=== PATIENT | female | born 1965 | race Native Hawaiian/Other Pacific Islander ===

== ENCOUNTER 2020-01-06 10:40 | Outpatient (REF) | payer OTHER, SELFPAY | END 2020-01-06 10:41 | disposition home or self-care (01) | LOC: HO.LAB 10:40 | PROVIDERS: Visit Provider Internal Medicine | DX: Z20.828 Contact with and (suspected) exposure to other viral communicable diseases (principal) | CPT/HCPCS: 87635 ==

== ENCOUNTER 2020-01-16 14:46 | Outpatient (REF) | payer OTHER, SELFPAY | END 2020-01-16 14:47 | disposition home or self-care (01) | LOC: HO.LAB 14:46 | PROVIDERS: PCP Internal Medicine; Visit Provider Internal Medicine | DX: Z20.828 Contact with and (suspected) exposure to other viral communicable diseases (principal) | CPT/HCPCS: U0003 ==

== ENCOUNTER 2020-08-16 11:42 | Outpatient (REF) | payer OTHER, SELFPAY | END 2020-08-16 11:43 | disposition home or self-care (01) | LOC: HO.LAB 11:42 | PROVIDERS: Visit Provider Internal Medicine | DX: Z20.822 Contact with and (suspected) exposure to COVID-19 (principal) | CPT/HCPCS: C9803; U0003; U0005 ==

== ENCOUNTER 2020-11-07 09:43 | Outpatient (REF) | payer OTHER, SELFPAY ==
--- NOTE | ~2020-11-07 | XR_ITS ---
EXAMINATION: XR KNEE, RIGHT XR FOOT, RIGHT XR FOOT, LEFT CLINICAL INFORMATION: Pain. COMPARISON: Left foot radiographs dated 09/21/2010 TECHNIQUE: AP, tunnel, lateral, and sunrise views of the right knee. AP, oblique, and lateral views of the right and left foot. FINDINGS: RIGHT KNEE: No acute fracture or dislocation. No joint space narrowing or marginal osteophytes. No osseous erosion. No abnormal soft tissue calcification. No significant joint effusion. RIGHT FOOT: No acute fracture or dislocation. No joint space narrowing or marginal osteophytes. No osseous erosion. Dorsal calcaneal enthesophyte. LEFT FOOT: No acute fracture or dislocation. No joint space narrowing or marginal osteophytes. No osseous erosion. Dorsal calcaneal enthesophyte. XR/XR foot LT 2V IMPRESSION: RIGHT KNEE: Unremarkable examination. RIGHT FOOT: No acute osseous abnormality. Dorsal calcaneal spur. LEFT FOOT: No acute osseous abnormality. Dorsal calcaneal spur, increased when compared to the prior radiographs.
--- NOTE | ~2020-11-07 | XR_ITS ---
EXAMINATION: XR KNEE, RIGHT XR FOOT, RIGHT XR FOOT, LEFT CLINICAL INFORMATION: Pain. COMPARISON: Left foot radiographs dated 09/21/2010 TECHNIQUE: AP, tunnel, lateral, and sunrise views of the right knee. AP, oblique, and lateral views of the right and left foot. FINDINGS: RIGHT KNEE: No acute fracture or dislocation. No joint space narrowing or marginal osteophytes. No osseous erosion. No abnormal soft tissue calcification. No significant joint effusion. RIGHT FOOT: No acute fracture or dislocation. No joint space narrowing or marginal osteophytes. No osseous erosion. Dorsal calcaneal enthesophyte. LEFT FOOT: No acute fracture or dislocation. No joint space narrowing or marginal osteophytes. No osseous erosion. Dorsal calcaneal enthesophyte. XR/XR knee RT 4V IMPRESSION: RIGHT KNEE: Unremarkable examination. RIGHT FOOT: No acute osseous abnormality. Dorsal calcaneal spur. LEFT FOOT: No acute osseous abnormality. Dorsal calcaneal spur, increased when compared to the prior radiographs.
--- NOTE | ~2020-11-07 | XR_ITS ---
EXAMINATION: XR KNEE, RIGHT XR FOOT, RIGHT XR FOOT, LEFT CLINICAL INFORMATION: Pain. COMPARISON: Left foot radiographs dated 09/21/2010 TECHNIQUE: AP, tunnel, lateral, and sunrise views of the right knee. AP, oblique, and lateral views of the right and left foot. FINDINGS: RIGHT KNEE: No acute fracture or dislocation. No joint space narrowing or marginal osteophytes. No osseous erosion. No abnormal soft tissue calcification. No significant joint effusion. RIGHT FOOT: No acute fracture or dislocation. No joint space narrowing or marginal osteophytes. No osseous erosion. Dorsal calcaneal enthesophyte. LEFT FOOT: No acute fracture or dislocation. No joint space narrowing or marginal osteophytes. No osseous erosion. Dorsal calcaneal enthesophyte. XR/XR foot RT 2V IMPRESSION: RIGHT KNEE: Unremarkable examination. RIGHT FOOT: No acute osseous abnormality. Dorsal calcaneal spur. LEFT FOOT: No acute osseous abnormality. Dorsal calcaneal spur, increased when compared to the prior radiographs.
[2020-11-07 11:29] LABS: MANUAL DIFF FLAG NO
[2020-11-07 11:37] LABS: Basophils Percent Auto 0.6 % (0-2); Eosinophils Absolute Auto 0.2 X10*3/uL (0.0-0.4); Eosinophils Percent Auto 2.4 % (0-4); Hematocrit 39.6 % (37-47); Hemoglobin 12.6 g/dl (12.0-16.0); Imm Gran Abs Auto 0.03 X10*3/uL (0.00-0.03); Imm Gran Pct Auto 0.5 % (0.0-0.4); Lymphocytes Absolute Auto 2.8 X10*3/uL (1.2-4.9); Lymphocytes Percent Auto 45.6 % (20-40); Mean Corpuscular HGB Conc 31.8 g/dl (31.0-35.0); Mean Corpuscular Hemoglobin 27.6 pg (27.0-33.0); Mean Corpuscular Volume 86.8 fL (80-98); Mean Platelet Volume 9.4 fL (9.4-12.3); Monocytes Absolute Auto 0.3 X10*3/uL (0.1-1.2); Monocytes Percent Auto 4.5 % (2-11); Neutrophils Absolute Auto 2.9 X10*3/uL (2.0-8.3); Neutrophils Percent Auto 46.4 % (45-73); Platelet Count 258 X10*3/uL (160-400); Red Blood Count 4.56 X10*6/uL (4.20-5.50); Red Cell Distribution Width 14.3 % (11.0-16.0); White Blood Count 6.2 X10*3/uL (4.8-10.8)
[2020-11-07 12:24] LABS: Thyroid Stimulating Hormone 1.12 uIU/mL (0.32-4.0)
[2020-11-07 12:27] LABS: Alanine Aminotransferase 22 U/L (0-31); Albumin Level 4.3 g/dL (3.5-5.0); Alkaline Phosphatase 104 U/L (39-117); Anion Gap 11 (12-20); Aspartate Amino Transferase 24 U/L (5-31); Bilirubin Total 0.6 mg/dL (0.0-1.0); Blood Urea Nitrogen 12 mg/dL (9-16); C Reactive Protein 0.13 mg/dL (< or = 0.50); Calcium 9.7 mg/dL (8.4-10.2); Carbon Dioxide 29 mmol/L (22-29); Chloride 107 mmol/L (96-108); Estimated Glomerular Filt Rate > 60; Glucose Random 86 mg/dL (60-115); Potassium 4.5 mmol/L (3.3-5.1); Sodium 142 mmol/L (135-145); Total Protein 7.2 g/dL (6.5-8.0)
[2020-11-07 12:31] LABS: Erythrocyte Sedimentation Rate 8 MM/HR (0-20)
[2020-11-07 12:43] LABS: Rheumatoid Factor < 15.0 IU/mL (<15.0)
[2020-11-08 09:25] LABS: Lyme Abs Screen <0.90 index
[2020-11-09 17:51] LABS: Cyclic Citrullinated Peptide <16 UNITS
== END 2020-11-07 09:44 | disposition home or self-care (01) ==
LOC: HO.XRAY 09:43
PROVIDERS: PCP Internal Medicine; Visit Provider Student in an Organized Health Care Education/Training Program
DX: M79.671 Pain in right foot (principal); M79.672 Pain in left foot; M25.561 Pain in right knee
CPT/HCPCS: 36415; 73564; 73620; 80053; 84443; 85025; 85652; 86140; 86200; 86431; 86617; 86618

== ENCOUNTER → 2020-11-21 09:03 | Outpatient (BNVA) | payer OTHER, SELFPAY | PROVIDERS: PCP Internal Medicine; Visit Provider Student in an Organized Health Care Education/Training Program ==

== ENCOUNTER 2021-01-15 13:28 | Outpatient (RCR) | payer OTHER, SELFPAY ==
--- NOTE | 2021-01-15 15:20 | MHC.PT.EP ---
[facility] Office [place] Office [place] Office [address] Deja Owens [address] [phone] F: [phone] F: [phone] F: [phone] F: [phone] Physical Therapy Plan of Care Date of Evaluation: Date of Surgery: n/a Diagnosis: Pain in R knee Assessment: Patient is a 55 year old female presenting to PT with complaints of pain in her R knee. Pt reports onset of pain began 4 years ago due to insidious onset. She presents today with impairments in pain, hip strength, knee strength, quad muscle length, and +ttp to her anterior knee. 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 Clinical presentation today is most consistent with signs and sx associated with knee pain with possible myofascial component and pt will benefit from skilled PT to address the following problems and impairments noted upon evaluation: pain, hip strength, knee strength, balance, quad muscle length, and +ttp to her anterior knee. These problems limit the patient with the following functional activities: ambulation, stair negotiation, transfers, and work. The prescribed treatment plan of care is medically necessary. Co-morbidities of polyarthralgia were identified and taken into considerations of plan of care. Pt was educated on HEP, role of PT, prognosis, POC. Frequency and Duration: The patient will be seen 2 x week x 4 weeks Short Term Goals: Pt will demonstrate improved knee strength to 5/5 in 2 weeks for improved ability to negotiate stairs. Pt will demonstrate improved quad muscle length to WNL in 2 weeks for improved knee ROM. Pt will demonstrate improved hip strength by 1/3 MMT for improved lumbopelvic stability in 2 weeks. Hotel Custodian Goals: Pt will demonstrate improved LEFI by 9 points in 4 weeks for improved functional mobility. Pt will demonstrate ability to ambulate with min to no pain community distances in 4 weeks. Pt will demonstrate ability to negotiate stairs in 4 weeks with min to no pain in 4 weeks to improve access to her 2nd floor home. Pt will demonstrate ability to transfer with min to no pain in 4 weeks. Treatment Plan: Modalities to reduce pain, spasms and effusion. Manual therapy to restore motion and function. Therapeutic exercise to improve strength and flexibility. Neuromuscular re-education for posture and balance. Therapeutic activities to return to functional activities of daily living. Electronically signed by: Wendy Ibrahim, PT, DPT, ATC Please sign and return to therapist. Thank you for your referral.
--- NOTE | 2021-01-30 10:24 | MHC.PT.DC ---
[facility] [place] Office [place] Office [place] Office [address] No[address] Owens [address] [phone] F: [phone] F: [phone] F: [phone] F: [phone] Physical Therapy Discharge Report Diagnosis: Pain in R knee Date of Surgery: n/a Date of Evaluation: 01/15/21 Date of Discharge: 01/30/21 Treatments to Date: 1 Cancellations to Date: 1 No Shows to Date: 3 Discharge Status: Visit Non-compliance Discharge Summary: Pt has failed to comply with [facility] attendance policy and no showed/cancelled all appointments since the evaluation. Pt status currently unknown. Electronically signed by: Wendy Ibrahim, PT, DPT, ATC Please sign and return to therapist. Thank you for your referral.
== END 2021-01-30 10:25 | disposition home or self-care (01) ==
LOC: HO.PT 13:28
PROVIDERS: PCP Internal Medicine; Visit Provider Student in an Organized Health Care Education/Training Program
DX: M25.561 Pain in right knee (principal)
CPT/HCPCS: 97110; 97161

== ENCOUNTER → 2021-02-20 10:08 | Outpatient (REF) | payer OTHER, SELFPAY ==
--- NOTE | 2021-02-20 10:12 | ECG_ITS ---
Test Reason : CHEST PAIN Blood Pressure : / mmHG Vent. Rate : 064 BPM Atrial Rate : 064 BPM P-R Int : 140 ms QRS Dur : 076 ms QT Int : 400 ms P-R-T Axes : 059 023 054 degrees QTc Int : 412 ms Normal sinus rhythm Normal ECG When compared with ECG of 09-SEP-2015 11:29, No significant change was found Referred By: Piedad Wilson Electronically Signed By:Solomon Melton
== END ==
LOC: HO.CARD 10:08
PROVIDERS: Visit Provider Internal Medicine
DX: R07.89 Other chest pain (principal); K21.9 Gastro-esophageal reflux disease without esophagitis; E78.5 Hyperlipidemia, unspecified; E55.9 Vitamin D deficiency, unspecified; Z23 Encounter for immunization
CPT/HCPCS: 93005

== ENCOUNTER 2021-06-24 11:30 | Outpatient (RCR) | payer OTHER, SELFPAY ==
--- NOTE | 2021-06-17 15:50 | MHC.OT.OEV ---
[address] [phone] F: [phone] Occupational Therapy Evaluation Diagnosis: PAIN IN RIGHT WRIST Date of Onset: 05/14/21 Attending Provider: Myriam Tenorio Prescribed Treatment: EVAL AND TREAT History of Current Condition: REPORTS A ONE MONTH HISTORY OF R HAND PAIN, PARTICULARLY IN MCPs D2-D5. SHE ALSO REPORTS MILD PAIN THROUGH DORSAL AND VOLAR WRIST, WELL THE BASE OF HER THUMB. HAS SEEN A LIBRARY SERVICES ASSISTANT IN THE PAST FOR KNEE AND FOOT PAIN. 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 HOBBIES INCLUDE VOLUNTEERING TO PASS FOOD AND CLOTHES ABOUT 1X/WEEK. Living Situation, Family and/or Social Support: LIVES WITH SPOUSE, GRANDCHILD (6 YEARS OLD) Current Level of Function and Occupation Self Care, Employment, Leisure: HAS STOPPED WORKING FOR ABOUT THREE YEARS, CONTINUES TO VOLUNTEER TWO DAYS A WEEK. 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 STATES MODERATE DIFFICULTIES WITH GETTING DRESSED AND BATHING SELF INCLUDING WASHING BACK. FREQUENTLY DROPS ITEMS OUT OF RIGHT HAND, UNABLE TO LIFT >10 POUNDS. SEVERE DIFFICULTIES WITH CUTTING FOOD AND OPENING TIGHT JAR. Sleep: MILD DIFFICULTIES Driving: NO DIFFICULTIES Pain Assessment Pain Score: 7-9/10 Pain Scale Used: Numeric (0 - 10) Pain Location and Description: R HAND, DORSAL MCPs D2-D5 AND RADIAL THUMB 7/10 AT REST; 9/10 WITH USE Aggravating Factors: GRIPPING, CUTTING Alleviating Factors: NAPROXEN, SOAKING IN HOT WATER Skin and Soft Tissue Assessment Skin and Soft Tissue: Comments: HEALED DORSAL R WRIST SCAR, REPORTS ?GANGLION CYST REMOVAL 5 YEARS AGO Sensory Assessment Temperature: Light Touch: Proprioception: Vibration: Comments: REPORTS NUMBNESS THROUGH D2 UPON WAKING IN THE MORNING; CONTINUE TO ASSESS WITH ONGOING SESSIONS DUE TO TIME CONSTRAINT Edema Assessment Upper Extremity: WNL Lower Extremity: Comments: CIRCUMFERENCE OF D2-D5: RIGHT 18.8 CM, LEFT 18.5 CM CIRCUMFERENCE OF WRIST, DISTAL TO US: RIGHT 15.5 CM, LEFT 15.3 CM Dexterity Assessment Dexterity: Right Impaired Comments: FUNCTIONAL DEXTERITY TEST: RIGHT 44 SECONDS (MODERATELY FUNCTIONAL), LEFT 36 SECONDS Special Tests Comments: AROM(PROM) Strength Wrist Flexion: R 50, L 55 Extension: R 65, L 50 Ulnar Deviation: Radial Deviation: Comments: PAIN WITH R WRIST FLEXION Flexion: Extension: Ulnar Deviation: Radial Deviation: Comments: Thumb Thumb CMC Flexion: Thumb MCP Flexion: Thumb IP Flexion: Radial Abduction: Palmar Abduction: Annabella (Kapandji 0-10): R 8/10, L 10/10 Comments: Digits Index MCP: PIP: DIP: Long MCP: PIP: DIP: Ring MCP: PIP: DIP: Small MCP: PIP: DIP: Comments: Gross Grasp: R 18, L 45 Lateral Pinch: R 5, L 9 Two-Point Pinch: Three-Jaw Stevie: Comments: Patient Education Primary Language: [employer] Transactions Attorney Required: Yes Current Knowledge: Understands information with skills for self-management Teaching Method: Audio/Video Demonstration Handouts Phone Call Verbal Education Needs Identified on Evaluation: ADL's Disease Information Equipment Use Exercise Pain Safety How did patient/family demonstrate learning? Patient demonstrates Patient verbalizes Barriers to Learning: None Readiness for Learning: Accepting Who was educated? Patient Comments: DAVI HAY BALER UTILIZED Plan of Care Assessment: MS TALAMANTES PRESENTS TO OT WITH A ONE MONTH HISTORY OF R HAND PAIN. SHE STATES HER PAIN IS LOCATED IN HER MCPj OF D2-D5, WELL BASE OF HER THUMB. A COMPRESSION GLOVE WAS RECOMMENDED BY HER MD, YET HAS NOT PURCHASED YET. 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 SHE OFTEN DROPS ITEMS AND C/O A WEAK GRASP. A 64% LIMITATION IS REPORTED PER THE QUICK DASH ASSESSMENT. ONGOING SKILLED OT IS WARRANTED TO ADDRESS ROM, STRENGTH, ACTIVITY MODIFICATION/ JOINT PROTECTION STRATEGIES, PAIN MANAGEMENT AND Pt EDUCATION. STG Duration: 2 WEEKS Short Term Goals: IND HEP IND JOINT PROTECTION, ACTIVITY MODIFICATION DURING ADLs/IADLs IND USE OF HEAT, INCLUDING POSSIBLE HOME PARAFFIN UNIT TRIAL USE OF COMPRESSION GLOVES LTG Duration: 4 WEEKS Nursing Home Goals: R GROSS GRASP >35 POUNDS QUICK DASH <50% IND PROGRESSION OF HEP REPORT <5/10 PAIN WITH AROM AND BADLs Frequency and Duration: The patient will be seen 2X/WEEK FOR 4 WEEKS Treatment Plan: Therapeutic Exercise Therapeutic Activity Home Exercise Program Splinting Neuro Re-ed Patient Education Desensitization/Sensory Re-ed Edema Control ADL Training Ultrasound NMES Iontophoresis Paraffin Fluidotherapy MHP Cold Packs Joint Mobilization Soft Tissue Mobilization Kinesiotaping Other (see comments) Electronically Signed By: JOHN MILLARD/Erick Reviewed/agree with student documentation: N/A Therapist: Please sign and return to therapist, Thank you for your referral.
--- NOTE | 2021-07-04 07:45 | MHC.OT.DC ---
[address] [phone] F: [phone] Occupational Therapy Discharge Note Provider: Myriam Tenorio Diagnosis: PAIN IN RIGHT WRIST Date of Evaluation: 06/17/21 Date of Discharge: 07/04/21 Treatments to Date: 3 Cancellations to Date: 0 No Shows to Date: 2 Discharge Status: Visit Non-compliance Discharge Summary: MS TALAMANTES WAS SEEN FOR AN OT EVALUATION AND TWO FOLLOW UP SESSIONS. AN ORTHOSIS WAS FABRICATED TO DECREASE CMC PAIN AND REPORTED SOME RELIEF WHEN WORN. SHE APPEARED TO HAVE GOOD FOLLOW THROUGH WITH JOINT PROTECTION TECHNIQUES. Pt IS BEING D/C FROM OT DUE TO CORE ATTENDANCE POLICY/ NO SHOWS. Electronically Signed By: JOSELYN GUPTA OTR/L Reviewed/agree with student documentation: N/A Therapist: Please Sign and return to therapist, thank you for your referral.
== END 2021-07-04 07:45 | disposition home or self-care (01) ==
LOC: HO.OT 11:30
PROVIDERS: PCP Internal Medicine; Visit Provider Nurse Practitioner Family
DX: M25.531 Pain in right wrist (principal)
CPT/HCPCS: 29130; 97018; 97110; 97165; 97760

== ENCOUNTER 2021-07-01 09:32 | Outpatient (REF) | payer OTHER, SELFPAY ==
[2021-07-01 09:51] LABS: MANUAL DIFF FLAG NO
[2021-07-01 10:10] LABS: Basophils Absolute Auto 0.1 X10*3/uL (0.0-0.2); Basophils Percent Auto 1.1 % (0-2); Eosinophils Absolute Auto 0.2 X10*3/uL (0.0-0.4); Eosinophils Percent Auto 2.5 % (0-4); Hemoglobin 13.3 g/dl (12.0-16.0); Lymphocytes Absolute Auto 2.9 X10*3/uL (1.2-4.9); Lymphocytes Percent Auto 46.2 % (20-40); Mean Corpuscular HGB Conc 31.7 g/dl (31.0-35.0); Mean Corpuscular Hemoglobin 27.4 pg (27.0-33.0); Mean Corpuscular Volume 86.4 fL (80.0-98.0); Mean Platelet Volume 9.1 fL (9.4-12.3); Monocytes Absolute Auto 0.3 X10*3/uL (0.1-1.2); Monocytes Percent Auto 4.6 % (2-11); Neutrophils Absolute Auto 2.9 x10*3/uL (2.0-8.3); Neutrophils Percent Auto 45.6 % (45-73); Platelet Count 274 X10*3/uL (160-400); Red Blood Count 4.86 X10*6/uL (4.20-5.50); Red Cell Distribution Width 14.2 % (11.0-16.0); White Blood Count 6.3 X10*3/uL (4.8-10.8)
[2021-07-01 10:40] LABS: Alanine Aminotransferase 23 U/L (0-31); Albumin Level 4.3 g/dL (3.5-5.0); Alkaline Phosphatase 106 U/L (39-117); Anion Gap 12 (12-20); Aspartate Amino Transferase 23 U/L (5-31); Bilirubin Total 0.8 mg/dL (0.0-1.0); Blood Urea Nitrogen 10 mg/dL (9-16); Carbon Dioxide 26 mmol/L (22-29); Chloride 106 mmol/L (96-108); Cholesterol 200 mg/dL; Estimated Glomerular Filt Rate > 60; Glucose Fasting 100 mg/dL (60-99); HDL Cholesterol 54 mg/dL; LDL Cholesterol Calculated 124 mg/dl; Potassium 5.2 mmol/L (3.3-5.1); Sodium 139 mmol/L (135-145); Total Protein 7.3 g/dL (6.5-8.0); Triglycerides 111 mg/dL
[2021-07-05 13:46] LABS: Vitamin D 25-OH, D2 <4 ng/mL; Vitamin D 25-OH, D3 16 ng/mL; Vitamin D 25-OH, Total 16 ng/mL (30-100)
== END 2021-07-01 09:33 | disposition home or self-care (01) ==
LOC: HO.LAB 09:32
PROVIDERS: PCP Internal Medicine; Visit Provider Internal Medicine
DX: E78.5 Hyperlipidemia, unspecified (principal); E55.9 Vitamin D deficiency, unspecified; K21.9 Gastro-esophageal reflux disease without esophagitis
CPT/HCPCS: 36415; 80053; 80061; 82306; 85025

== ENCOUNTER 2021-07-17 13:46 | Outpatient (REF) | payer OTHER, SELFPAY ==
--- NOTE | ~2021-07-17 | MM_ITS ---
EXAMINATION: BONE DENSITOMETRY CLINICAL INDICATION: Menopause. COMPARISON: None (current study represents initial baseline exam). TECHNIQUE: Using a Voxify DXA System (software version: 13.1) manufactured by [employer], dual-energy x-ray absorptiometry was performed of the lumbar spine and left hip. The images are of good technical quality. Summary results are attached. FINDINGS: AP SPINE L1-L4: BMD 0.974 g/cm2, Z-score -1.1, T-score -1.7, osteopenia. LEFT FEMUR, NECK: BMD 0.803 g/cm2, Z-score -0.8, T-score -1.7, osteopenia. LEFT FEMUR, TOTAL: BMD 0.864 g/cm2, Z-score -0.6, T-score -1.1, osteopenia. IDENTIFIED RISK FACTORS: Early menopause, low calcium intake, secondary osteoporosis. HISTORY OF FRACTURE: None listed. MEDICATIONS: None listed. MM/XR DEXA axial skeleton IMPRESSION: 1. DIAGNOSIS: Osteopenia based on the lowest T-score value of -1.7 in the lumbar spine and femur neck applying World Health Organization criteria. 2. 10-YEAR FRACTURE RISK PREDICTION, FRAX: Major osteoporotic fracture (clinical spine, forearm, hip or shoulder) 3.6%. Hip fracture 0.3%. 3. Treatment Recommendations: NOF guidelines recommend consideration for treatment in postmenopausal women and men age 50 and older presenting with the following: -A hip or vertebral (clinical or morphometric) fracture. -T-score less than or equal to -2.5 at the femoral neck or spine after appropriate evaluation to exclude secondary causes. -Low bone mass at the hip or spine and a 10-year fracture probability by FRAX of greater than or equal to 3% for hip fracture or greater than or equal to 20% for major osteoporotic fracture based on the [place] adapted WHO algorithm. 4. Other Recommendations: All treatment decisions require clinical judgment and consideration of individual patient factors, including patient preferences, comorbidities, previous drug use, risk factors not captured in the FRAX model (e.g. frailty, falls, vitamin D deficiency, increased bone turnover, interval significant decline in bone density) and possible under or overestimation of fracture risk by FRAX. Additional medical evaluation for secondary cause of low bone mineral density may be appropriate. FUTURE SCAN RECOMMENDATION: People with diagnosed cases of osteoporosis or at high risk for fracture should have regular bone mineral density tests. For patients eligible for Medicare, routine testing is allowed once every 2 years. The testing frequency can be increased to one year for patients who have rapidly progressing disease, those who are receiving or discontinuing medical therapy to restore bone mass, or have additional risk factors.
== END 2021-07-17 13:47 | disposition home or self-care (01) ==
LOC: HO.MAMMO 13:46
PROVIDERS: PCP Internal Medicine; Visit Provider Internal Medicine
DX: Z13.820 Encounter for screening for osteoporosis (principal); M85.80 Other specified disorders of bone density and structure, unspecified site; Z78.0 Asymptomatic menopausal state
CPT/HCPCS: 77080

== ENCOUNTER 2021-09-02 09:41 | Outpatient (REF) | payer OTHER, SELFPAY ==
--- NOTE | ~2021-09-02 | MM_ITS ---
EXAMINATION: MM SCREENING DIGITAL BREAST TOMOSYNTHESIS, BILATERAL CLINICAL INFORMATION: Screening. Asymptomatic. The lifetime risk of breast cancer based on the Tyrer-Cuzick Model is 4%. COMPARISON: Mammography: 09/01/2018, 05/18/2017, 12/07/2015 TECHNIQUE: Digital breast tomosynthesis is performed in both the craniocaudal and mediolateral oblique views along with computer-aided detection (CAD). Synthesized 2D images are generated from the tomosynthesis. FINDINGS: There are scattered areas of fibroglandular density (ACR BI-RADS breast composition Category b). There are no significant masses, abnormal calcifications, or other abnormalities. Parenchymal pattern is similar to prior studies. No developing density. No architectural abnormality. Nodule posterior upper outer left breast likely intramammary node stable. MM/MM tomosynthesis screening BI IMPRESSION: No mammographic evidence of malignancy. ASSESSMENT: BI-RADS 2: Benign RECOMMENDATION: Routine annual mammography screening. This patient's information was entered into a reminder system with a target due date for their next mammogram.
== END 2021-09-02 09:42 | disposition home or self-care (01) ==
LOC: HO.MAMMO 09:41
PROVIDERS: PCP Internal Medicine; Visit Provider Internal Medicine
DX: Z12.31 Encounter for screening mammogram for malignant neoplasm of breast (principal)
CPT/HCPCS: 77063; 77067

== ENCOUNTER 2022-06-24 09:53 | Outpatient (REF) | payer OTHER, SELFPAY ==
--- NOTE | ~2022-06-24 | FL_ITS ---
EXAMINATION: FL BARIUM SWALLOW CLINICAL INFORMATION: Dysphagia. COMPARISON: None available. TECHNIQUE: Barium swallow was performed in upright view with thick barium and barium-coated turkey and prone lying position with thin barium. Fluoroscopy time: 1.3 minutes. DAP: 8.083 Gy-cm2. Images: 59. FINDINGS: Following oral administration of thick barium and barium-coated turkey, there is normal probation of bolus from the oral cavity through the pharynx and esophagus and into the stomach without obstruction, narrowing or stricture. There is no extrinsic compression or intrinsic narrowing. On oral administration of thin barium in lying position, there is normal distention of the esophagus without any focal filling defect. No hiatal hernia or reflux seen. FL/FL barium swallow IMPRESSION: Unremarkable barium swallow exam.
== END 2022-06-24 09:54 | disposition home or self-care (01) ==
LOC: HO.XRAY 09:53
PROVIDERS: PCP Internal Medicine; Visit Provider Internal Medicine
DX: R13.10 Dysphagia, unspecified (principal)
CPT/HCPCS: 74220

== ENCOUNTER 2022-07-08 07:10 | Outpatient (REF) | payer OTHER, SELFPAY ==
[2022-07-08 07:20] LABS: MANUAL DIFF FLAG NO
[2022-07-08 07:36] LABS: Basophils Absolute Auto 0.1 X10*3/uL (0.0-0.2); Basophils Percent Auto 0.8 % (0-2); Eosinophils Absolute Auto 0.2 X10*3/uL (0.0-0.4); Eosinophils Percent Auto 2.6 % (0-4); Hematocrit 40.5 % (37.0-47.0); Hemoglobin 12.7 g/dl (12.0-16.0); Imm Gran Abs Auto 0.02 X10*3/uL (0.00-0.03); Imm Gran Pct Auto 0.3 % (0.0-0.4); Lymphocytes Absolute Auto 3.5 X10*3/uL (1.2-4.9); Lymphocytes Percent Auto 46.8 % (20-40); Mean Corpuscular HGB Conc 31.4 g/dl (31.0-35.0); Mean Corpuscular Hemoglobin 27.1 pg (27.0-33.0); Mean Corpuscular Volume 86.4 fL (80.0-98.0); Mean Platelet Volume 8.9 fL (9.4-12.3); Monocytes Absolute Auto 0.4 X10*3/uL (0.1-1.2); Monocytes Percent Auto 5.4 % (2-11); Neutrophils Absolute Auto 3.3 x10*3/uL (2.0-8.3); Neutrophils Percent Auto 44.1 % (45-73); Platelet Count 274 X10*3/uL (160-400); Red Blood Count 4.69 X10*6/uL (4.20-5.50); White Blood Count 7.5 X10*3/uL (4.8-10.8)
[2022-07-08 08:11] LABS: Alanine Aminotransferase 18 U/L (0-31); Albumin Level 4.1 g/dL (3.5-5.0); Alkaline Phosphatase 106 U/L (39-117); Anion Gap 10 (12-20); Aspartate Amino Transferase 18 U/L (5-31); Bilirubin Total 0.4 mg/dL (0.0-1.0); Blood Urea Nitrogen 11 mg/dL (9-16); Calcium 9.3 mg/dL (8.4-10.2); Carbon Dioxide 28 mmol/L (22-29); Chloride 109 mmol/L (96-108); Cholesterol 202 mg/dL; Estimated Glomerular Filt Rate > 60; Glucose Fasting 99 mg/dL (60-99); HDL Cholesterol 49 mg/dL; LDL Cholesterol Calculated 138 mg/dl; Potassium 4.4 mmol/L (3.3-5.1); Sodium 143 mmol/L (135-145); Total Protein 6.7 g/dL (6.5-8.0); Triglycerides 79 mg/dL
[2022-07-08 08:41] LABS: Folate 13.1 ng/mL (> or = 4.0); Vitamin B12 284 pg/mL (200-900); Vitamin D 25-OH Total 13.9 ng/mL (>30)
== END 2022-07-08 07:11 | disposition home or self-care (01) ==
LOC: HO.LAB 07:10
PROVIDERS: PCP Internal Medicine; Visit Provider Internal Medicine
DX: E55.9 Vitamin D deficiency, unspecified (principal); M54.50 Low back pain, unspecified; E53.8 Deficiency of other specified B group vitamins; E78.5 Hyperlipidemia, unspecified
CPT/HCPCS: 36415; 80053; 80061; 82306; 82607; 82746; 85025

== ENCOUNTER 2022-09-22 12:52 | Outpatient (AMB) | payer OTHER, SELFPAY ==
[2022-09-22 12:53] VITALS: BP 110/68; PULSE 78; O2SAT 99; BMI 29.1
--- NOTE | 2022-09-22 12:53 | A.OFFPC_ITS ---
Vital Signs 09/22/22 12:53 Height 5 ft 0.75 in Weight 153 lb BMI 29.1 BP 110/68 Blood Pressure Location Lt brachial Position Sitting Pulse 78 Pulse Source Pulse Oximeter Temp Source Skin Pulse Oximetry (%) 99 Oxygen Delivery Method Room Air Intake Visit Reasons: Right Hand Pain Intake Note: pt states right hand pain X1week ago Receivable Executive Required: No Receivable Executive Name: [id number] Information Interpreted: non-clinical & clinical Allergies sumatriptan [From IMITREX] Allergy (Intermediate, Verified 09/22/22 13:09) RASH Tobacco use date assessed: 09/22/22 HPI HPI Comments History of Present Illness Details 57-year-old female past medical history significant for migraines, dy slipidemia, GERD and polyarthralgia. Patient Dr. Vidal last seen in June presents today for same-day visit for right hand pain for 3 years. Feels like is is inflamed. s/p removal of mass in hand and feels like mass is coming back. Previously seen by orthopedic in [place]. Patient currently taking naproxen as needed for pain with good effect. [facility] Medical History Allergic rhinitis Dyslipidemia GERD (gastroesophageal reflux disease) Pain Physical exam Polyarthralgia Postmenopausal Right sided sciatica Screening for cervical cancer Surgical History History of hemorrhoidectomy History of tubal ligation Family History Father Diabetes Heart disease Hypertension CVD (cardiovascular disease) Mother Heart disease Hypertension CVD (cardiovascular disease) Diabetes Family/Other FH: mental illness Mental health disorder Substance use disorder Brother In good health Sister In good health Son In good health Daughter In good health Social History Household Members: Spouse Housing: House Alcohol intake: never Patient Tobacco Use Status: Never used Tobacco e-Cigarette/Vaping Use: Never Used Second Hand Smoke Exposure: No service: No Current occupational status: unemployed Cognitive needs: No Hearing needs: No Vision needs: No Questionnaire Thrive Questionnaire Date Thrive assessed: 07/10/22 AUDIT C Alcohol Use Questionnaire (AUDIT-C) 1. How often do you have a drink containing alcohol?: Never Total Score: 0 ELISE-7 AMB Questionnaire ELISE-7 Date ELISE - 7 assessed: 07/10/22 Feeling nervous, anxious, or on edge: 0 = Not at all Not being able to stop or control worryin = Not at all Worrying too much about different things: 0 = Not at all Trouble relaxin = Not at all Being so restless that it is hard to sit still: 0 = Not at all Becoming easily annoyed or irritable: 0 = Not at all Feeling afraid as if something awful might happen: 0 = Not at all Total ELISE-7 score (0-4 normal; 5-9 mild; 10-14 moderate; 15-21 severe): 0 Source: Developed by Drs. Jimmy Pickard, Jeannette Lewis, Jamie Jade and colleagues, with an educational selene from [employer]. ELISE-7 Assessment Billing ELISE-7 Assessment Tool: ELISE-7 Assessment 25048 Review of Systems Const Denies chills, Denies fatigue, Denies fever(s) and Denies poor appetite Eyes Denies no additional complaints ENT Reports Normal hearing present Card Denies chest pain, Denies syncope, Denies rapid heart rate and Denies dyspnea Resp Denies cough and Denies dyspnea GI Denies change in stool character, Denies constipation, Denies diarrhea, Denies nausea and Denies vomiting Denies urinary frequency, Denies dysuria and Denies urinary urgency Musc Reports other (right hand pain ) Neuro Reports Normal hearing present, Denies confusion and Denies syncope Psych Denies confusion Endo Denies fatigue Physical exam (Primary Care) Vital Signs: Last Vital Signs Pulse 78 09/22/22 12:53 BP 110/68 09/22/22 12:53 Pulse Ox 99 09/22/22 12:53 Oxygen Delivery Method Room Air 09/22/22 12:53 BMI result Body Mass Index 29.1 Tobacco/Smoking Status: Tobacco use Status Tobacco use date assessed 09/22/22 09/22/22 12:58 Patient Tobacco Use Status Never used Tobacco 09/22/22 12:58 e-Cigarette/Vaping Use Never Used 09/22/22 12:58 Thrive Assessment: Date of Thrive Assessment Date Thrive assessed 07/10/22 09/22/22 12:58 Const General: No confusion Orientation/consciousness: No confusion [facility] Head: Yes normocephalic and Yes atraumatic Eyes Conjunctivae: conjunctivae normal Chest Chest palpation & inspection: normal inspection of the chest Resp Effort & Inspection: normal respiratory effort Auscultation: clear to auscultation bilaterally, no crackles, no rhonchi and no wheezes Cardio Rate: regular rate Rhythm: regular rhythm Heart sounds: S1 normal heart sound present and S2 normal heart sound present GI Inspection: Yes normal to inspection Neuro General: No confusion Cranial nerves: Yes Normal hearing present Extrem General: No edema Right upper extremity: normal to inspection, full ROM and Extremity exam: right hand Details: normal to inspection, normal capillary refill, abnormal ROM of finger Details: pain with active ROM and swelling Location: of the dorsal hand Location: over the 3rd metacarpal; no tenderness, no unusual warmth and no ecchymosis Left upper extremity: normal to inspection, full ROM and normal capillary refill Assessment and Plan Assessment & Plan (1) Right hand pain: Code(s): M79.641 - Pain in right hand Plan: Right hand x-ray ordered to rule out acute injury. Patient can continue to take naproxen as needed for pain and apply ice for any swelling. Referral entered to the orthopedic hand specialist. Offered referral for occupational therapy for right hand pain however patient declines this time states she did therapy multiple times in the past with no improvement of pain. Plan Keep scheduled follow-up with PCP Orders: Orders XR hand RT 2V Today M79.641 - Pain in right hand Referrals Orthopedics Referral M79.641 - Pain in right hand Medications: Refilled naproxen 500 mg PO BID PRN 60 tabs 3RF pain 30 days R52 - Pain, unspecified Coding Level of Care Code Est Pt Level 3 (47507) Diagnoses Right hand pain M79.641 Additional Codes ELISE-7 Assessment Billing - ELISE-7 Assessment Tool: ELISE-7 Assessment 24272 ([id number])
== END 2022-09-22 13:23 | disposition home or self-care (01) ==
PROVIDERS: PCP Internal Medicine; Visit Provider Nurse Practitioner Family
DX: M79.641 Pain in right hand (principal)
CPT/HCPCS: 99213

== ENCOUNTER 2022-09-22 13:34 | Outpatient (REF) | payer OTHER, SELFPAY ==
--- NOTE | ~2022-09-22 | XR_ITS ---
EXAMINATION: XR HAND, RIGHT CLINICAL INFORMATION: Pain COMPARISON: None available. TECHNIQUE: PA, lateral, and oblique views of the right hand. FINDINGS: The bones and soft tissues are normal. No fracture. Alignment is anatomic. Joint spaces are maintained. No erosions or soft tissue calcifications. XR/XR hand RT 2V IMPRESSION: Normal right hand.
--- NOTE | ~2022-09-22 | XR_ITS ---
EXAMINATION: XR LUMBOSACRAL SPINE CLINICAL INFORMATION: Low back pain COMPARISON: 07/05/2018 TECHNIQUE: Three views of the lumbosacral spine. FINDINGS: The vertebral bodies and posterior elements are normal. The disc spaces are preserved and the vertebral alignment is normal. Phleboliths in the pelvis. Unremarkable bowel gas pattern. The paraspinal soft tissues are normal. XR/XR lumbar spine 2-3V IMPRESSION: Unremarkable examination.
== END 2022-09-22 13:35 | disposition home or self-care (01) ==
LOC: HO.XRAY 13:34
PROVIDERS: PCP Internal Medicine; Visit Provider Nurse Practitioner Family
DX: M79.641 Pain in right hand (principal); M54.50 Low back pain, unspecified
CPT/HCPCS: 72100; 73120

== ENCOUNTER 2022-10-14 15:45 | Outpatient (REF) | payer OTHER, SELFPAY ==
--- NOTE | ~2022-10-14 | MM_ITS ---
EXAMINATION: MM SCREENING DIGITAL BREAST TOMOSYNTHESIS, BILATERAL CLINICAL INFORMATION: Screening. Asymptomatic. The lifetime risk of breast cancer based on the Tyrer-Cuzick Model is 4.9%. COMPARISON: Mammography: This study is compared with prior exams dating back to 2018. TECHNIQUE: Digital breast tomosynthesis is performed in both the craniocaudal and mediolateral oblique views along with computer-aided detection (CAD). Synthesized 2D images are generated from the tomosynthesis. FINDINGS: There are scattered areas of fibroglandular density (ACR BI-RADS breast composition Category b). There are no significant masses, abnormal calcifications, or other abnormalities. MM/MM tomosynthesis screening BI IMPRESSION: No mammographic evidence of malignancy. ASSESSMENT: BI-RADS BI-RADS 1 - Negative RECOMMENDATION: Routine annual mammography screening. 1 year F/U This examination should not preclude the clinical evaluation of a suspicious palpable abnormality. This patient's information was entered into a reminder system with a target due date for their next mammogram.
== END 2022-10-14 15:46 | disposition home or self-care (01) ==
LOC: HO.MAMMO 15:45
PROVIDERS: PCP Internal Medicine; Visit Provider Internal Medicine
DX: Z12.31 Encounter for screening mammogram for malignant neoplasm of breast (principal)
CPT/HCPCS: 77063; 77067

== ENCOUNTER → 2022-10-14 15:45 | Outpatient (BNV) | payer OTHER, SELFPAY | PROVIDERS: PCP Internal Medicine; Visit Provider Radiology Diagnostic Radiology | DX: Z12.31 Encounter for screening mammogram for malignant neoplasm of breast (principal) | CPT/HCPCS: 77063; 77067 ==

== ENCOUNTER 2022-10-24 09:59 | Outpatient (AMB) | payer OTHER, SELFPAY ==
--- NOTE | 2022-10-24 10:12 | A.OFFVIS_ITS ---
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 States pain in hand has been presents for at least 5 yrs. No injury she can recall. Hx of hand O.A. and cyst removal approx 6-7 yrs ago. Pain is mainly at her dorsum aspect of hand. States pain increase when hand is in use or with grabbing motion. states she has weakness in hand and has dropped items due to pain and weakness. Patient has tried braces with little help. States she feels like her cyst may be growing again. 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 She states she has pain and weakness in the dorsal aspect of her hand which is aggravated with the use of her hand, grabbing motions and in the mornings accompanied with swelling. She also c/o numbness and tingling in her hand which radiates to her wrist and frequently dropping items from her right hand. She finds mild relief with a hand brace. She has not had any injury in the past. She finds no relief with physical therapy. She takes naproxen for her pain. She has a history of OA of hand and a cyst removal about 6 years ago. [facility] Medical History Allergic rhinitis Dyslipidemia GERD (gastroesophageal reflux disease) Pain Physical exam Polyarthralgia Postmenopausal Right sided sciatica Screening for cervical cancer Surgical History History of hemorrhoidectomy History of tubal ligation Family History Father Diabetes Heart disease Hypertension CVD (cardiovascular disease) Mother Heart disease Hypertension CVD (cardiovascular disease) Diabetes Family/Other FH: mental illness Mental health disorder Substance use disorder Brother In good health Sister In good health Son In good health Daughter In good health Social History (Updated 10/24/22 @ 10:19 by PATRICE Fang) Household Members: Spouse Housing: House Alcohol intake: never Patient Tobacco Use Status: Never used Tobacco e-Cigarette/Vaping Use: Never Used Second Hand Smoke Exposure: No service: No Current occupational status: unemployed 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 Cognitive needs: No Hearing needs: No Vision needs: No Review of Systems Const All systems reviewed & are unremarkable except as noted in HPI and below Physical Exam Vital Signs: BMI result Body Mass Index 29.1 Const General: cooperative, healthy appearing, comfortable, no acute distress, well developed and alert Orientation/consciousness: patient oriented x3 HEENT Head: Yes normal to inspection, Yes normocephalic and Yes atraumatic Eyes General: appearance normal, both eyes and all related structures Resp Effort & Inspection: normal respiratory effort and able to speak in complete sentences Cardio Rate: regular rate Peripheral pulses: Peripheral pulses 2+ throughout GI Palpation (GI): Soft to palpation Skin Lesions: no lesions Rashes: no rashes Neuro General: patient oriented x3 Extrem Other: Right wrist: Normal to inspection. Tenderness over the carpal canal. Numbness and tingling over the median nerve distribution of the right hand. Able to make a full fist and fully extend all fingers. Positive Tinel's. Results Reviewed Results Reviewed: xrays oft he right hand obtained on 09/22/22 are negative for acute fracture or dislocations. Assessment & Plan Assessment & Plan (1) Carpal tunnel syndrome of right wrist: Code(s): G56.01 - Carpal tunnel syndrome, right upper limb Plan We are going to send her for an EMG study of the right upper extremity to further evaluate her etiology of numbness and tingling. Once this is complete, I will review the results and reach to her with the next step in her treatment. Orders: Orders NE electromyogram (EMG) Today R20.0 - Anesthesia of skin, R20.2 - Paresthesia of skin NE nerve conduction velocity Today R20.0 - Anesthesia of skin, R20.2 - Paresthesia of skin Patient Instructions: Scribed for Grace Guevara PA-C, by Shay Solomon center medical director, on 10/24/2022 at 10:00 AM EST. IGrace PA-C, have personally reviewed and agree with the information entered by the scribe. Coding Level of Care Code New Pt Level 3 (34719) Diagnoses Carpal tunnel syndrome of right wrist G56.01
[2022-10-24 10:13] VITALS: BMI 29.1
== END 2022-10-24 10:43 | disposition home or self-care (01) ==
PROVIDERS: PCP Internal Medicine; Visit Provider Physician Assistant
DX: G56.01 Carpal tunnel syndrome, right upper limb (principal)
CPT/HCPCS: 99204

== ENCOUNTER → 2022-10-24 09:59 | Outpatient (BNVA) | payer OTHER, SELFPAY | PROVIDERS: PCP Internal Medicine; Visit Provider Physician Assistant ==

== ENCOUNTER 2022-10-31 09:51 | Outpatient (REF) | payer OTHER, SELFPAY ==
--- NOTE | 2022-10-31 09:54 | HO.EMG-NCS ---
Physiatry - EMG/NCS EMG/NCS Chief complaint: Left hand pain and numbness chronic Reason for referral: Evaluate for Carpal Tunnel Syndrome Referred by: [facility] Procedure done: Right upper extremity NCS/EMG Precautions and/or limitations: None The limb temperature was monitored continuously and remained between 32-36 degrees C during the performance of the NCS. Nerve Conduction Studies Anti Sensory Summary Table ?Stim Site NR Onset (ms) Norm Onset (ms) Peak (ms) Norm Peak (ms) O-P Amp (?V) Norm O-P Amp Site1 Site2 Delta-0 (ms) Dist (cm) Jd (m/s) Norm Jd (m/s) Right Median Anti Sensory (2nd Digit) Wrist ? 2.6 3.3 <3.6 57.3 >10 Wrist 2nd Digit 2.6 14.0 54 Right Ulnar Anti Sensory (5th Digit) Wrist ? 2.5 3.1 <3.7 45.4 >15.0 Wrist 5th Digit 2.5 14.0 56 Motor Summary Table ?Stim Site NR Onset (ms) Norm Onset (ms) O-P Amp (mV) Norm O-P Amp iAmp (mV) Amp (1st) (%) Site1 Site2 Delta-0 (ms) Dist (cm) Jd (m/s) Norm Jd (m/s) Right Median Motor (Abd Poll Brev) Wrist ? 3.4 <3.9 10.5 >4.5 12.8 100.0 Elbow Wrist 3.4 17.5 51 >45 Elbow ? 6.8 10.9 13.2 103.8 Right Ulnar Motor (Abd Dig Minimi) Wrist ? 2.7 <3.0 7.0 >5 9.3 100.0 B Elbow Wrist 2.7 17.0 63 >45 B Elbow ? 5.4 7.0 9.3 100.0 A Elbow B Elbow 1.4 10.0 71 >45 A Elbow ? 6.8 7.0 9.4 100.0 Comparison Summary Table ?Stim Site NR Peak (ms) Norm Peak (ms) P-T Amp (?V) Site1 Site2 Delta-P (ms) Norm Delta (ms) Right Median/Radial Dig I Comparison (Digit 1 - 10cm) Median ? 2.9 <2.9 71.7 Median Radial 0.4 Radial ? 2.5 <2.8 25.7 EMG ?Side Muscle Nerve Root Ins Act Fibs Psw Amp Dur Poly Recrt Int Pat Comment Right 1stDorInt Ulnar C8-T1 Nml Nml Nml Nml Nml 0 Nml Complete Right FlexCarRad Median C6-7 Nml Nml Nml Nml Nml 0 Nml Complete Right Biceps Musculocut C5-6 Nml Nml Nml Nml Nml 0 Nml Complete Right Triceps Radial C6-7-8 Nml Nml Nml Nml Nml 0 Nml Complete Right Deltoid Axillary C5-6 Nml Nml Nml Nml Nml 0 Nml Complete Paraspinal EMG ?Side Muscle Nerve Root Ins Act Fibs Psw Comment Right Cervical Upper Rami Nml Nml Nml Right Cervical Mid Rami Nml Nml Nml Right Cervical Lower Rami Nml Nml Nml FINDINGS: All motor and sensory nerves tested showed normal distal latency, amplitudes and conduction velocity. Concentric needle EMG was performed in selected muscles of the right upper extremity and cervical paraspinals. Study did not reveal signs of electric abnormalities as shown in the table below. IMPRESSION: 1. This is normal study. 2. There is no electrodiagnostic evidence for median neuropathy, ulnar neuropathy, brachial plexopathy, or cervical radiculopathy. Thank you for your kind referral. Melanie Wise MD, JAZMÍN Board Certified, [place] [employer] and [employer] (ABPMR) Board Certified, [place] Board [employer] Electrodiagnostic Medicine (ABEM)
--- NOTE | 2022-10-31 10:03 | EMG_ITS ---
Please see EMG / Nerve Conduction Report. MTDD
== END 2022-10-31 09:52 | disposition home or self-care (01) ==
LOC: HO.NEURO 09:51
PROVIDERS: PCP Internal Medicine; Visit Provider Physician Assistant
DX: R20.0 Anesthesia of skin (principal); R20.2 Paresthesia of skin
CPT/HCPCS: 95860; 95886; 95907; 95909

== ENCOUNTER → 2022-10-31 09:51 | Outpatient (BNV) | payer OTHER, SELFPAY | PROVIDERS: PCP Internal Medicine; Visit Provider Physical Medicine & Rehabilitation | DX: M79.641 Pain in right hand (principal); R20.0 Anesthesia of skin; R20.2 Paresthesia of skin | CPT/HCPCS: 95886; 95909 ==

== ENCOUNTER 2023-01-27 09:29 | Outpatient (AMB) | payer OTHER, SELFPAY ==
--- NOTE | 2023-01-27 09:38 | MHC.PC.OV ---
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 Accompanied by: Self / Same As Patient Allergies sumatriptan [From IMITREX] Allergy (Intermediate, Verified 01/27/23 10:12) RASH Medication List - Last Reconciled 01/27/23 by Renny White PA-C acetaminophen ER 1,300 mg (2 x 650 mg) PO Q12H PRN 90 days amitriptyline 10 mg PO BEDTIME 30 days cholecalciferol (vitamin D3) 50 mcg PO DAILY 90 days fluticasone propionate 50 mcg/actuation (Allergy Relief (fluticasone)) 1 spray intranasal DAILY 30 days hydrocortisone 1% (Anti-Itch (hydrocortisone)) 1 appl topical TID PRN 30 days loratadine 10 mg PO DAILY 90 days naproxen 500 mg PO BID PRN 30 days omeprazole 20 mg PO DAILY 90 days Tobacco use date assessed: 09/22/22 Dental Screening Dental Screen Date: 01/27/23 Did you have a dental visit in the last 12 months?: Yes Did you have a dental problem in the last 6 months where you did not have access to dental care?: No Was dental information given to patient?: Patient has dentist HPI knee pain HPI Details Patient is a 57-year-old female here today for problem visit.. This is the 1st time I am meeting this 57-year-old female. She reports ongoing right knee pain. Has been evaluated with x-ray in 2020 which did not show any advanced arthritis. She also reports having lump over right hand over the last month. Pain is actually all over and has not had any recent physical trauma to explain her pain. [facility] Medical History Allergic rhinitis Dyslipidemia GERD (gastroesophageal reflux disease) Pain Physical exam Polyarthralgia Postmenopausal Right sided sciatica Screening for cervical cancer Surgical History History of hemorrhoidectomy History of tubal ligation Family History Father Diabetes Heart disease Hypertension CVD (cardiovascular disease) Mother Heart disease Hypertension CVD (cardiovascular disease) Diabetes Family/Other FH: mental illness Mental health disorder Substance use disorder Brother In good health Sister In good health Son In good health Daughter In good health Social History Household Members: Spouse Housing: House Alcohol intake: never Patient Tobacco Use Status: Never used Tobacco e-Cigarette/Vaping Use: Never Used Second Hand Smoke Exposure: No service: No Current occupational status: unemployed 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 Jimmy Pickard, Jeannette Lewis, Jamie Jade and colleagues, with an educational selene from [employer]. Review of Systems Const Denies headache(s) Eyes Denies loss of vision ENT Denies vertigo, Denies dizziness, Denies headache(s) and Denies sore throat Card Denies chest pain, Denies leg edema and Denies lightheadedness Resp Denies cough, Denies hemoptysis and Denies wheezing GI Denies abdominal pain, Denies melena, Denies constipation, Denies diarrhea and Denies vomiting Denies urinary frequency, Denies dysuria and Denies urinary urgency Musc Details: + bilateral hand and bilateral knee pain Reports back pain, Reports arthralgias, Denies joint swelling, Denies numbness and Denies tingling Neuro Denies Abnormal speech present, Denies behavioral changes, Denies vertigo, Denies dizziness, Denies headache(s), Denies loss of vision, Denies memory loss, Denies numbness and Denies tingling Psych Denies anxiety, Denies behavioral changes, Denies depression, Denies memory loss and Denies panic attacks Iván/Lymph Denies easy bleeding and Denies easy bruising Aller/Immun Denies wheezing Physical exam (Primary Care) Vital Signs: Last Vital Signs Pulse 76 01/27/23 09:39 BP 116/72 01/27/23 09:39 Pulse Ox 97 11/14/23 09:39 Oxygen Delivery Method Room Air 01/27/23 09:39 BMI result Body Mass Index 30.0 Tobacco/Smoking Status: Tobacco use Status Tobacco use date assessed 09/22/22 01/27/23 09:40 Patient Tobacco Use Status Never used Tobacco 01/27/23 09:40 e-Cigarette/Vaping Use Never Used 01/27/23 09:40 Thrive Assessment: Date of Thrive Assessment Date Thrive assessed 07/10/22 01/27/23 09:40 Const General: healthy appearing, no acute distress, alert and awake Nutritional Appearance: well nourished Orientation/consciousness: oriented to person, oriented to place and oriented to time HENMT Ears: TM's normal bilaterally General nose exam: Normal nasal mucous membranes and turbinates present Eyes Conjunctivae: conjunctivae normal Sclerae: sclerae normal Pupils: Equal, round and reactive pupils present Neck Neck: Yes no lymphadenopathy and Yes no JVD Thyroid: Thyroid normal Carotids: no bruits Resp Effort & Inspection: normal respiratory effort and not tachypneic Auscultation: no crackles, no rales, no rhonchi and no wheezes Cardio Rate: regular rate Rhythm: regular rhythm Heart sounds: no murmurs and normal S1 and S2 GI Palpation (GI): Soft to palpation, nontender, no hepatomegaly and no splenomegaly Auscultation: normal bowel sounds Skin General skin exam: no rashes or lesions noted and dry skin Neuro General: oriented to person, oriented to place and oriented to time Cranial nerves: Yes Equal, round and reactive pupils present Speech: No Abnormal speech present Gait exam (Neuro): Normal gait present Motor exam (neuro): no tremor noted Extrem Right upper extremity: full ROM Left upper extremity: full ROM Right lower extremity: full ROM; no edema Left lower extremity: full ROM; no edema Psych Mental Status: mental status grossly normal Speech and movement: Normal speech and movement present Affect: normal affect Attitude: cooperative Thought process: Normal thought process present Assessment and Plan Assessment & Plan (1) Fibromyalgia: Code(s): M79.7 - Fibromyalgia Plan: Patient reports all over body pain/bone pain. X-rays of her hands, feet and both knees without any evidence of arthritis. Seems to be a fibromyalgia picture. She is willing to try Cymbalta and a different anti-inflammatory. Will send for rheumatology lab testing. Orders: Orders PIEDAD Reflex Titer and Pattern 01/27/23 M79.641 - Pain in right hand Rheumatoid Factor 01/27/23 M79.641 - Pain in right hand Cyclic Citrullinated Peptide 01/27/23 M79.641 - Pain in right hand DNA Double Stranded-Crithidia 01/27/23 M79.641 - Pain in right hand Medications: New duloxetine (Cymbalta) 20 mg PO DAILY 30 days 30 caps 1RF M79.7 - Fibromyalgia meloxicam 15 mg PO DAILY 30 days PRN 30 tabs 1RF pain, moderate M79.7 - Fibromyalgia Refilled cholecalciferol (vitamin D3) 50 mcg PO DAILY 90 days 90 caps 1RF Discontinued naproxen Discontinued Reason: Doctor's Order 500 mg PO BID 30 days PRN 60 tabs 3RF pain R52 - Pain, unspecified Coding Level of Care Code Est Pt Level 3 (55597) Diagnoses Fibromyalgia M79.7
[2023-01-27 09:39] VITALS: BP 116/72; PULSE 76; O2SAT 97
== END 2023-01-27 10:30 | disposition home or self-care (01) ==
PROVIDERS: PCP Internal Medicine; Visit Provider Physician Assistant
DX: M79.7 Fibromyalgia (principal)
CPT/HCPCS: 99213

== ENCOUNTER 2023-01-27 10:33 | Outpatient (REF) | payer OTHER, SELFPAY ==
[2023-01-27 11:44] LABS: Rheumatoid Factor < 13.0 IU/mL (<15.0)
[2023-01-29 13:18] LABS: Cyclic Citrullinated Peptide <16 UNITS
[2023-02-01 14:53] LABS: DNAds, Crithidia Antibody Negative (Negative)
[2023-02-02 12:57] LABS: Anti Nuclear Antibody Screen NEGATIVE (NEGATIVE)
== END 2023-01-27 10:34 | disposition home or self-care (01) ==
LOC: HO.LAB 10:33
PROVIDERS: PCP Physician Assistant; Visit Provider Physician Assistant
DX: M79.641 Pain in right hand (principal)
CPT/HCPCS: 36415; 86038; 86200; 86255; 86431

== ENCOUNTER 2023-02-18 09:16 | Outpatient (AMB) | payer OTHER, MEDICAID, SELFPAY ==
[2023-02-18 10:23] VITALS: BP 118/72; PULSE 76; TEMP 36.6; O2SAT 98; BMI 30.1
--- NOTE | 2023-02-18 10:23 | MHC.OFFWIV ---
Intake Vital Signs 02/18/23 10:23 Height 5 ft 0.75 in Weight 158 lb BMI 30.1 BP 118/72 Blood Pressure Location Rt brachial Position Sitting Pulse 76 Pulse Source Pulse Oximeter Temp 97.9 F Temp Source Temporal Artery Scan Pulse Oximetry (%) 98 Oxygen Delivery Method Room Air Intake Visit Reasons: EP, Bilateral arm pain/discomfort Intake Note: pt is here for c/o bilateral arm pain/discomfort denies injury 1x week Patient Tobacco Use Status: Never used Tobacco Allergies sumatriptan [From IMITREX] Allergy (Intermediate, Verified 02/18/23 10:34) RASH Medication List - Last Reconciled 02/18/23 by KATHY Perales-TR acetaminophen ER 1,300 mg (2 x 650 mg) PO Q12H PRN 90 days amitriptyline 10 mg PO BEDTIME 30 days cholecalciferol (vitamin D3) 50 mcg PO DAILY 90 days duloxetine (Cymbalta) 20 mg PO DAILY 30 days fluticasone propionate 50 mcg/actuation (Allergy Relief (fluticasone)) 1 spray intranasal DAILY 30 days hydrocortisone 1% (Anti-Itch (hydrocortisone)) 1 appl topical TID PRN 30 days loratadine 10 mg PO DAILY 90 days meloxicam 15 mg PO DAILY PRN 30 days omeprazole 20 mg PO DAILY 90 days Do you need a note to return to daycare/school/sports/work: Yes HPI HPI Comments History of Present Illness Details here today with acute on chronic bilat arm pain, started < 1 week ago, without assoc injury, radiates from neck into elbows, worse w/ movement in the setting of known polyarthralgia, fibromylagia referred to Rheum by PCP based on record review in the past (2020) she states this was only for R hand mass, lawrence group x 1. to tx the pain she reports meloxicam and cymbalta RX'd by PCP group. She just picked this up on Thursday. Unsure if it's working or not. [facility] Medical History (Updated 02/18/23 @ 10:53 by KATHY Perales-TR) Postmenopausal Screening for cervical cancer Physical exam Right sided sciatica Dyslipidemia Polyarthralgia Allergic rhinitis GERD (gastroesophageal reflux disease) Pain Surgical History History of hemorrhoidectomy History of tubal ligation Family History Father Diabetes Heart disease Hypertension CVD (cardiovascular disease) Mother Heart disease Hypertension CVD (cardiovascular disease) Diabetes Family/Other FH: mental illness Mental health disorder Substance use disorder Brother In good health Sister In good health Son In good health Daughter In good health Social History Household Members: Spouse Housing: House Alcohol intake: never Patient Tobacco Use Status: Never used Tobacco e-Cigarette/Vaping Use: Never Used Second Hand Smoke Exposure: No service: No Current occupational status: unemployed 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 General: Yes normal to inspection, Yes full ROM, Yes capillary refill normal, Yes no joint enlargement and Yes no clubbing, cyanosis or edema Right upper extremity: shoulder/upper arm Details: tenderness Results Reviewed Results Reviewed: Labs 01/2023 WNL Assessment & Plan Assessment & Plan (1) Fibromyalgia: Code(s): M79.7 - Fibromyalgia Plan: as this appears c/w chronic pain, advised she should cont to take meds prescribed & fu with PCP. Noted no active Rheum referral. PCP group message for referral to be placed. (2) Polyarthralgia: Code(s): M25.50 - Pain in unspecified joint Plan: as this appears c/w chronic pain, advised she should cont to take meds prescribed & fu with PCP. Noted no active Rheum referral. PCP group message for referral to be placed. Coding Level of Care Code Est Pt Level 4 (24538) Diagnoses Fibromyalgia M79.7 Polyarthralgia M25.50
== END 2023-02-18 10:53 | disposition home or self-care (01) ==
PROVIDERS: PCP Internal Medicine; Visit Provider Nurse Practitioner Family
DX: M79.7 Fibromyalgia (principal); M25.50 Pain in unspecified joint
CPT/HCPCS: 99214

== ENCOUNTER 2023-04-06 16:49 | Emergency (ER) | payer OTHER, MEDICAID, SELFPAY ==
--- NOTE | ~2023-04-06 | XR_ITS ---
EXAMINATION: XR CHEST CLINICAL INFORMATION: Reason for Exam chest pain COMPARISON: Chest radiograph 09/09/2015 TECHNIQUE: 2 views of the chest FINDINGS: Lines and tubes: None. There is asymmetric opacification in the right lung apex, unclear if this could reflect superimposition of normal tissues or underlying infection or lesion and recommend correlation with contrast-enhanced CT chest. No pleural effusion. No pneumothorax. Normal cardiomediastinal silhouette. XR/XR chest 2V IMPRESSION: 1. There is asymmetric opacification in the right lung apex, unclear if this could reflect superimposition of normal tissues, underlying infection or an lesion and recommend correlation with contrast-enhanced CT chest.
--- NOTE | ~2023-04-06 | CT_ITS ---
EXAMINATION: CT ANGIOGRAM OF THE CHEST WITH AND WITHOUT CONTRAST (CT PULMONARY ANGIOGRAM FOR PE) CLINICAL INFORMATION: Reason for Exam LEFT-SIDED PAIN WITH SHORTNESS OF BREATH, COMPARISON: Chest x-ray 04/06/2023 TECHNIQUE: Prior to contrast administration, noncontrast localization images were obtained. Subsequently, multidetector volumetric imaging was performed from the thoracic inlet to below the diaphragms following the administration of 65 mL Omnipaque 350 intravenous contrast. No contrast reaction reported Sagittal, coronal, and MIP oblique sagittal reformatted images were obtained on the CT workstation, uploaded to PACS, and reviewed. This CT examination was performed using dose optimization techniques as appropriate, variously including the following: *Automated exposure control *Adjustment of mA and/or kV according to patient size (this includes techniques or standardized protocols for targeted exams where dose is matched to indication/reason for exam; i.e. extremities or head) *Use of iterative reconstruction technique Total exam dose-length product 102 mGy-cm FINDINGS: QUALITY OF STUDY/CONTRAST BOLUS: Satisfactory. PULMONARY ARTERIES: No filling defects are seen in the main, lobar, or segmental pulmonary arteries to suggest the presence of pulmonary emboli. THORACIC AORTA: No aneurysm. LUNG: Streaky bibasilar opacities are most consistent with atelectasis. No additional consolidation. PLEURA: No pleural effusion or pneumothorax. MEDIASTINUM: There is a suspected left thyroid nodule inferiorly measuring approximately 1.7 cm. There are subcentimeter mediastinal lymph nodes within the range of normal variation. Cardiac size is within normal limits; no pericardial effusion. CORONARY ARTERY CALCIFICATION: None visualized on this study. CHEST WALL/AXILLA: No axillary or internal mammary lymphadenopathy. OSSEOUS STRUCTURES: Multilevel endplate osteophytes in the spine. UPPER ABDOMEN: There is an approximately 1.5 cm cyst in the left hepatic lobe. No reflux of contrast into the hepatic veins to suggest elevated right heart pressures. CT/CT angio chest PE protocol IMPRESSION: 1. No pulmonary embolus identified. 2. Bibasilar subsegmental atelectasis. 3. Suspected left thyroid nodule measuring approximately 1.7 cm. Further evaluation with nonemergent thyroid ultrasound is recommended. VTE: negative.
--- NOTE | 2023-04-06 16:50 | ECG_ITS ---
Test Reason : CX PAIN Blood Pressure : / mmHG Vent. Rate : 082 BPM Atrial Rate : 082 BPM P-R Int : 142 ms QRS Dur : 076 ms QT Int : 370 ms P-R-T Axes : 039 -01 049 degrees QTc Int : 432 ms Normal sinus rhythm Inferior infarct , age undetermined Abnormal ECG When compared with ECG of 20-FEB-2021 10:20, Inferior infarct is now Present Referred By: Danielle Portillo Electronically Signed By:Solomon Melton
[2023-04-06 17:11] VITALS: BP 122/71; PULSE 79; RESP 18; TEMP 37.2; O2SAT 99; BMI 29.7
--- NOTE | 2023-04-06 17:12 | ED.GENADULT ---
HPI - General Adult General Chief complaint: Chest Pain Stated complaint: Chest pain Time Seen by Provider: 04/07/23 00:34 Source: patient and family Mode of arrival: ambulatory Limitations: no limitations History of Present Illness HPI narrative: Patient with no known coronary artery disease does have history of fibromyalgia complaining of pain left since early today which can not worse on palpation and deep inspiration no cough no shortness of breath no radiation of the pain pain is sharp in character lasting for few minutes Related Data Previous Rx's Medication Instructions Recorded amitriptyline 10 mg tablet 10 mg PO BEDTIME 30 days #30 tabs 05/12/22 acetaminophen 650 mg 1,300 mg (2 x 650 mg) PO Q12H PRN 05/14/22 tablet,extended release fever or pain 90 days #360 tabs hydrocortisone 1 % topical cream 1 appl topical TID PRN skin 05/14/22 (Anti-Itch (hydrocortisone)) irritation 30 days #28.4 grams loratadine 10 mg tablet 10 mg PO DAILY 90 days #90 tabs 05/14/22 omeprazole 20 mg capsule,delayed 20 mg PO DAILY 90 days #90 caps 05/14/22 release duloxetine 20 mg capsule,delayed 20 mg PO DAILY 30 days #30 caps 01/27/23 release (Cymbalta) meloxicam 15 mg tablet 15 mg PO DAILY PRN pain, moderate 01/27/23 30 days #30 tabs cholecalciferol (vitamin D3) 50 50 mcg PO DAILY 90 days #90 caps 03/17/23 mcg (2,000 unit) capsule fluticasone propionate 50 1 spray intranasal DAILY 30 days 03/17/23 mcg/actuation nasal #9.9 mL spray,suspension (Allergy Relief (fluticasone)) Allergies Allergy/AdvReac Type Severity Reaction Status Date / Time sumatriptan [From IMITREX] Allergy Intermediate RASH Verified 04/06/23 17:11 Review of Systems Review of Systems: Yes all other systems are reviewed and are negative [facility] Past Medical History Medical History Postmenopausal Screening for cervical cancer Physical exam Right sided sciatica Dyslipidemia Polyarthralgia Allergic rhinitis GERD (gastroesophageal reflux disease) Pain Surgical History History of hemorrhoidectomy History of tubal ligation Family History Family History Father Diabetes Heart disease Hypertension CVD (cardiovascular disease) Mother Heart disease Hypertension CVD (cardiovascular disease) Diabetes Family/Other FH: mental illness Mental health disorder Substance use disorder Brother In good health Sister In good health Son In good health Daughter In good health Social History Social History Household Members: Spouse Housing: House Alcohol intake: never Patient Tobacco Use Status: Never used Tobacco Smoked in Last 30 Days: No e-Cigarette/Vaping Use: Never Used Second Hand Smoke Exposure: No Use of substances other than those prescribed or required for medical reasons: No Advance Directives: No Advance Directives Information Provided: No Patient : No service: No Current occupational status: unemployed 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 Oriented X3. No acute distress. Eyes: PERRLA, No Nystagmus ENT: Pharynx normal. Oral Mucosa moist Neck: Normal inspection. Neck supple. CVS: Normal heart rate and rhythm. Pulses normal. Respiratory: No respiratory distress. Equal air entry bilateral, no wheezing/rales/rhonchi left chest wall tenderness+ Abdomen: Soft and nontender. Bowel sounds are present, no mass palpable, no CVA tenderness Skin: Skin warm and dry. Normal skin color. Normal skin turgor. Extremities: No lower extremity edema. No calf tenderness Neuro: Oriented X 3. No motor deficit. Course Course Course Narrative: RME performed by Danielle Portillo PA-C. Patient is a 57 year old assigned female at presenting to the emergency department with chest pain. Detailed physical exam and review of systems are deferred to the mid level clinician. Labs, imaging, and swabs ordered. Patient placed back in the waiting room pending room availability and results. Medications Administered Discontinued Medications Generic Name Dose Route Start Last Admin Trade Name Alee PRN Reason Stop Dose Admin Iohexol 65 ml 04/07/23 01:55 04/07/23 01:56 Iohexol 350 Mg/Ml 100 Ml Infus..Btl IV 04/07/23 01:56 65 ml ONCE ONE Administration Ketorolac Tromethamine 30 mg 04/07/23 00:56 04/07/23 01:10 Ketorolac Tromethamine 30 Mg/Ml Vial IVPUSH 04/07/23 00:57 30 mg ONCE ONE Administration Medical Decision Making Differential Diagnosis Differential Diagnoses: The differential diagnosis associated with the presentation includes Musculoskeletal pain/ACS/PE Lab Data MDM Lab Attestation statement: I reviewed the patient's lab results. 04/06/23 17:43 04/06/23 17:43 Labs: Lab Results 04/06/23 04/06/23 Range/Units 17:43 17:46 WBC 8.3 (4.8-10.8) X10*3/uL RBC 4.77 (4.20-5.50) X10*6/uL Hgb 13.0 (12.0-16.0) g/dl Hct 40.9 (37.0-47.0) % MCV 85.7 (80.0-98.0) fL MCH 27.3 (27.0-33.0) pg MCHC 31.8 (31.0-35.0) g/dl RDW 14.1 (11.0-16.0) % Plt Count 285 (160-400) X10*3/uL MPV 9.0 L (9.4-12.3) fL Immature Gran % (Auto) 0.2 (0.0-0.4) % Neut % (Auto) 60.5 (45-73) % Lymph % (Auto) 32.0 (20-40) % Warrick % (Auto) 4.6 (2-11) % Eos % (Auto) 2.1 (0-4) % Baso % (Auto) 0.6 (0-2) % Lymph # (Auto) 2.7 (1.2-4.9) X10*3/uL Warrick # (Auto) 0.4 (0.1-1.2) X10*3/uL Eos # (Auto) 0.2 (0.0-0.4) X10*3/uL Baso # (Auto) 0.1 (0.0-0.2) X10*3/uL Abs Immat Gran (auto) 0.02 (0.00-0.03) X10*3/uL Absolute Neuts (auto) 5.0 (2.0-8.3) x10*3/uL Absolute Nucleated RBC 0.000 (0.0-0.012) X10*3/uL Nucleated RBC % (auto) 0.0 (0.0-0.2) /100WBC Sodium 141 (135-145) mmol/L Potassium 3.5 (3.3-5.1) mmol/L Chloride 105 (96-108) mmol/L Carbon Dioxide 28 (22-29) mmol/L Anion Gap 12 (12-20) BUN 12 (9-16) mg/dL Creatinine 0.88 (0.5-1.4) mg/dL Estim Creat Clear Calc 65.1 Estimated GFR > 60 Random Glucose 98 (60-115) mg/dL Calcium 9.4 (8.4-10.2) mg/dL Magnesium 1.9 (1.6-2.6) mg/dL Total Bilirubin 0.3 (0.0-1.0) mg/dL AST 21 (5-31) U/L ALT 21 (0-31) U/L Alkaline Phosphatase 108 (39-117) U/L Troponin I High Sens < 2.7 (<3.5-17.0) ng/L Total Protein 7.8 (6.5-8.0) g/dL Albumin 4.4 (3.5-5.0) g/dL Urine Color Yellow Urine Appearance Clear Urine pH 8.0 (5.0-9.0) Ur Specific Ferguson 1.020 (1.005-1.025) Urine Protein Negative (Neg-Trace) mg/dL Urine Glucose (UA) Negative (Negative) mg/dL Urine Ketones Negative (Negative) mg/dL Urine Blood Negative (Negative) Urine Nitrite Negative (Negative) Ur Leukocyte Esterase Negative (Negative) COVID-19 (CYNTHIA) Negative (Negative) COVID-19 Clin Com See Note Influenza Type A (SIDNEY) Negative (Negative) Influenza Type B (SIDNEY) Negative (Negative) Influenza A & B Note See Note Independent Interpretation I performed an independent interpretation of an: EKG and CT Scan Interpretation: Normal sinus rhythm heart rate 64 beats per minute normal interval normal axis no acute ST changes impression normal EKG Radiology Impression Discussion of test interpretation with radiology: I have reviewed the radiologist's reading. Radiologist Impression: [address] [address] [address] Scan Report Signed Patient: Suzy Pastrana MR#: [id number] : 1965 Acct:[id number] Age/Sex: 57 / F ADM Date: 04/06/23 Loc: HO.ED Attending Dr: Ordering Physician: Neal Jones MD Date of Service: 04/07/23 Procedure(s): CT angio chest PE protocol Accession Number(s): [id number] cc: Piedad Flannery MD; Neal Jones MD~ EXAMINATION: CT ANGIOGRAM OF THE CHEST WITH AND WITHOUT CONTRAST (CT PULMONARY ANGIOGRAM FOR PE) CLINICAL INFORMATION: Reason for Exam LEFT-SIDED PAIN WITH SHORTNESS OF BREATH, COMPARISON: Chest x-ray 04/06/2023 TECHNIQUE: Prior to contrast administration, noncontrast localization images were obtained. Subsequently, multidetector volumetric imaging was performed from the thoracic inlet to below the diaphragms following the administration of 65 mL Omnipaque 350 intravenous contrast. No contrast reaction reported Sagittal, coronal, and MIP oblique sagittal reformatted images were obtained on the CT workstation, uploaded to PACS, and reviewed. This CT examination was performed using dose optimization techniques as appropriate, variously including the following: *Automated exposure control *Adjustment of mA and/or kV according to patient size (this includes techniques or standardized protocols for targeted exams where dose is matched to indication/reason for exam; i.e. extremities or head) *Use of iterative reconstruction technique Total exam dose-length product 102 mGy-cm FINDINGS: QUALITY OF STUDY/CONTRAST BOLUS: Satisfactory. PULMONARY ARTERIES: No filling defects are seen in the main, lobar, or segmental pulmonary arteries to suggest the presence of pulmonary emboli. THORACIC AORTA: No aneurysm. LUNG: Streaky bibasilar opacities are most consistent with atelectasis. No additional consolidation. PLEURA: No pleural effusion or pneumothorax. MEDIASTINUM: There is a suspected left thyroid nodule inferiorly measuring approximately 1.7 cm. There are subcentimeter mediastinal lymph nodes within the range of normal variation. Cardiac size is within normal limits; no pericardial effusion. CORONARY ARTERY CALCIFICATION: None visualized on this study. CHEST WALL/AXILLA: No axillary or internal mammary lymphadenopathy. OSSEOUS STRUCTURES: Multilevel endplate osteophytes in the spine. UPPER ABDOMEN: There is an approximately 1.5 cm cyst in the left hepatic lobe. No reflux of contrast into the hepatic veins to suggest elevated right heart pressures. CT/CT angio chest PE protocol IMPRESSION: 1. No pulmonary embolus identified. 2. Bibasilar subsegmental atelectasis. 3. Suspected left thyroid nodule measuring approximately 1.7 cm. Further evaluation with nonemergent thyroid ultrasound is recommended. Discharge Plan Discharge Clinical Impression: Chest wall pain Patient Disposition: Home, Self-Care Instructions: Chest Pain (ED) Additional Instructions: Chest pain is likely musculoskeletal Take Tylenol/Motrin for pain Your with thyroid nodule follow-up with your PCP Prescriptions: No Action omeprazole 20 mg capsule,delayed release(DR/EC) 20 mg PO DAILY 90 Days Qty: 90 3RF hydrocortisone [Anti-Itch (HC)] 1 % cream 1 appl topical TID PRN (Reason: skin irritation) 30 Days Qty: 28.4 1RF loratadine 10 mg tablet 10 mg PO DAILY 90 Days Qty: 90 3RF acetaminophen 650 mg tablet extended release 1,300 mg PO Q12H PRN (Reason: fever or pain) 90 Days Qty: 360 0RF cholecalciferol (vitamin D3) 50 mcg (2,000 unit) capsule 50 mcg PO DAILY 90 Days Qty: 90 1RF fluticasone propionate [Allergy Relief (fluticasone)] 50 mcg/actuation spray,suspension 1 spray intranasal DAILY 30 Days Qty: 9.9 11RF Rx Instructions: administer into each nostril amitriptyline 10 mg tablet 10 mg PO BEDTIME 30 Days Qty: 30 1RF duloxetine [Cymbalta] 20 mg capsule,delayed release(DR/EC) 20 mg PO DAILY 30 Days Qty: 30 1RF meloxicam 15 mg tablet 15 mg PO DAILY PRN (Reason: pain, moderate) 30 Days Qty: 30 1RF
[2023-04-06 17:56] LABS: MANUAL DIFF FLAG NO
[2023-04-06 17:59] LABS: Appearance Urine Clear; Color Urine Yellow; Glucose Urine UA Negative (Negative); Leukocyte Esterase Urine Negative (Negative); Nitrite Urine Negative (Negative); Urine Blood Negative (Negative); Urine Ketones Negative (Negative); Urine Protein Negative (Neg-Trace)
[2023-04-06 18:11] LABS: Alanine Aminotransferase 21 U/L (0-31); Albumin Level 4.4 g/dL (3.5-5.0); Alkaline Phosphatase 108 U/L (39-117); Anion Gap 12 (12-20); Aspartate Amino Transferase 21 U/L (5-31); Bilirubin Total 0.3 mg/dL (0.0-1.0); Blood Urea Nitrogen 12 mg/dL (9-16); Calcium 9.4 mg/dL (8.4-10.2); Carbon Dioxide 28 mmol/L (22-29); Chloride 105 mmol/L (96-108); Creatinine Clr Calc Pharmacy 65.1; Estimated Glomerular Filt Rate > 60; Glucose Random 98 mg/dL (60-115); Magnesium 1.9 mg/dL (1.6-2.6); Potassium 3.5 mmol/L (3.3-5.1); Sodium 141 mmol/L (135-145); Total Protein 7.8 g/dL (6.5-8.0)
[2023-04-06 18:12] LABS: Basophils Absolute Auto 0.1 X10*3/uL (0.0-0.2); Basophils Percent Auto 0.6 % (0-2); Eosinophils Absolute Auto 0.2 X10*3/uL (0.0-0.4); Eosinophils Percent Auto 2.1 % (0-4); Hematocrit 40.9 % (37.0-47.0); Imm Gran Abs Auto 0.02 X10*3/uL (0.00-0.03); Imm Gran Pct Auto 0.2 % (0.0-0.4); Lymphocytes Absolute Auto 2.7 X10*3/uL (1.2-4.9); Mean Corpuscular HGB Conc 31.8 g/dl (31.0-35.0); Mean Corpuscular Hemoglobin 27.3 pg (27.0-33.0); Mean Corpuscular Volume 85.7 fL (80.0-98.0); Monocytes Absolute Auto 0.4 X10*3/uL (0.1-1.2); Monocytes Percent Auto 4.6 % (2-11); Neutrophils Percent Auto 60.5 % (45-73); Platelet Count 285 X10*3/uL (160-400); Red Blood Count 4.77 X10*6/uL (4.20-5.50); Red Cell Distribution Width 14.1 % (11.0-16.0); White Blood Count 8.3 X10*3/uL (4.8-10.8)
[2023-04-06 18:20] LABS: Troponin-I High Sensitivity < 2.7 ng/L (<3.5-17.0)
[2023-04-06 18:37] LABS: COVID-19 Test Negative (Negative); IDNOW Serial# 152EDE1D; IDNOW Serial# 9DB6401D; Influenza A Negative (Negative); Influenza B2 Negative (Negative)
[2023-04-07 00:19] VITALS: BP 120/67; PULSE 86; RESP 16; TEMP 36.7; O2SAT 98
--- NOTE | 2023-04-07 00:20 | MHC.EDTECH ---
This pct just assumed care of Pt ,vitals taken ,and Pt was hooked up to potline monitor ,Pt is comfortable and is resting waiting to see Provider .
[2023-04-07] MEDS: Ketorolac Tromethamine 30 MG/ML VIAL IVPUSH (01:10)
[2023-04-07] MEDS: iohexoL 350 MG/ML 100 ML INFUS..BTL 65 ML IV (01:56)
[2023-04-07 02:17] VITALS: BP 101/66; PULSE 84; RESP 16; TEMP 36.5; O2SAT 98
== END 2023-04-07 04:29 | disposition home or self-care (01) ==
PROVIDERS: Physician Assistant Medical; Emergency Provider Internal Medicine; PCP Internal Medicine
DX: R07.89 Other chest pain (principal); Z11.52 Encounter for screening for COVID-19; E78.5 Hyperlipidemia, unspecified; Z79.899 Other long term (current) drug therapy
CPT/HCPCS: 71046; 71275; 80053; 81003; 83735; 84484; 85025; 87502; 87635; 93005; 96374; 99284; J1885; Q9967

== ENCOUNTER → 2023-04-06 16:50 | Outpatient (BNV) | payer OTHER, MEDICAID, SELFPAY | PROVIDERS: Emergency Provider Internal Medicine; PCP Internal Medicine; Visit Provider Internal Medicine Cardiovascular Disease | DX: R94.31 Abnormal electrocardiogram [ECG] [EKG] (principal); R07.9 Chest pain, unspecified | CPT/HCPCS: 93010 ==

== ENCOUNTER 2023-05-07 10:49 | Outpatient (AMB) | payer OTHER, MEDICAID, SELFPAY ==
--- NOTE | 2023-05-07 11:00 | MHC.OFFVIS ---
Intake Vital Signs 05/07/23 11:06 Height 5 ft 1 in Weight 157 lb 10.088 oz BMI 29.8 BP 108/66 Blood Pressure Location Rt brachial Position Sitting Pulse 79 Pulse Source Pulse Oximeter Temp 97.0 F Temp Source Skin Pulse Oximetry (%) 97 Oxygen Delivery Method Room Air Intake Visit Reasons: Fibromyalgia Intake Note: New pt presents today for FM consult, internally referred by PCP Renny White. C/o pain in knees, feet, back, elbows, and hands. States she was recently seen in ED for abdominal pain. Stoker Installer Required: Yes Stoker Installer Language: Photo Studio Assistant Name: Teri [id number] Information Interpreted: clinical only Accompanied by: Self / Same As Patient Allergies sumatriptan [From IMITREX] Allergy (Intermediate, Verified 05/07/23 11:16) RASH Medication List - Last Reconciled 05/07/23 by Erika Newell MD acetaminophen ER 1,300 mg (2 x 650 mg) PO Q12H PRN 90 days amitriptyline 10 mg PO BEDTIME 30 days cholecalciferol (vitamin D3) 50 mcg PO DAILY 90 days duloxetine (Cymbalta) 20 mg PO DAILY 30 days fluticasone propionate 50 mcg/actuation (Allergy Relief (fluticasone)) 1 spray intranasal DAILY 30 days hydrocortisone 1% (Anti-Itch (hydrocortisone)) 1 appl topical TID PRN 30 days loratadine 10 mg PO DAILY 90 days meloxicam 15 mg PO DAILY PRN 30 days omeprazole 20 mg PO DAILY 90 days HPI HPI Comments History of Present Illness Details This is a 57-year-old female who presents for evaluation of fibromyalgia. She states that she has diffuse pain especially in her back and knees. She gets knee pain when she walks for some time. She states that she takes meloxicam as needed for her knee pain with some relief. She is also on amitriptyline and duloxetine. She states that she sleeps well. [facility] Medical History Postmenopausal Screening for cervical cancer Physical exam Right sided sciatica Dyslipidemia Polyarthralgia Allergic rhinitis GERD (gastroesophageal reflux disease) Pain Surgical History History of hemorrhoidectomy History of tubal ligation Family History (Updated 05/07/23 @ 11:10 by PATRICE Rivas) Father Diabetes Heart disease Hypertension CVD (cardiovascular disease) Mother Heart disease Hypertension CVD (cardiovascular disease) Diabetes Family/Other FH: mental illness Mental health disorder Substance use disorder Brother In good health Sister Rheumatoid arthritis Son In good health Daughter In good health Social History Household Members: Spouse Housing: House Alcohol intake: never Patient Tobacco Use Status: Never used Tobacco e-Cigarette/Vaping Use: Never Used Second Hand Smoke Exposure: No service: No Current occupational status: unemployed 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 Cognitive needs: No Hearing needs: No Vision needs: No Review of Systems Const Reports fatigue, Reports headache(s) and Reports weakness ENT Reports headache(s) GI Reports constipation and Reports heartburn Musc Reports back pain, Reports arthralgias and Reports stiffness Neuro Reports headache(s) and Reports weakness Endo Reports fatigue Physical Exam Vital Signs: Last Vital Signs Temp 97.0 F 05/07/23 11:06 Pulse 79 05/07/23 11:06 BP 108/66 05/07/23 11:06 Pulse Ox 97 05/07/23 11:06 Oxygen Delivery Method Room Air 05/07/23 11:06 BMI result Body Mass Index 29.8 Const General: cooperative, healthy appearing and comfortable Nutritional Appearance: overweight Orientation/consciousness: patient oriented x3 Limitations: no limitations HEENT Head: Yes normocephalic and Yes atraumatic Mouth: moist mucous membranes Resp Effort & Inspection: normal respiratory effort and able to speak in complete sentences Auscultation: clear to auscultation bilaterally Cardio Rate: regular rate Rhythm: regular rhythm Skin General skin exam: no rashes or lesions noted Neuro General: patient oriented x3 Extrem Other: Few fibromyalgia tender points Right knee pain with full flexion No active synovitis Assessment & Plan Assessment & Plan (1) Fibromyalgia: Code(s): M79.7 - Fibromyalgia Plan: This is a 57-year-old female who presents for evaluation of fibromyalgia. Discussed management of fibromyalgia with patient. Is a noninflammatory, non-autoimmune central afferent processing disorder leading to a diffuse pain syndrome. I suggested that patient try to address her underlying psychiatric issues, anxiety. I suggested evaluation by a therapist and/or a psychiatrist. Try to follow sleep hygiene practices. Consider a referral for sleep study by PCP to rule out PAKO. Patient would benefit from increased physical activity, either through formal physical therapy or by joining a gym. Advised patient that she should start activity slowly and increase as tolerated. Consider low-impact exercises such as walking, swimming, aqua therapy stretching, yoga. Patient is already on amitriptyline and Cymbalta Follow-up with PCP (2) Knee pain, right: Code(s): M25.561 - Pain in right knee Qualifiers: Chronicity: chronic Qualified Code(s): M25.561 - Pain in right knee; G89.29 - Other chronic pain Plan: Patient using meloxicam as needed. Advised patient to try using Tylenol and Voltaren gel. Only use meloxicam sparingly Plan I spent 30 minutes reviewing patient's chart, evaluating patient, counseling patient and documenting in the chart Coding Level of Care Code New Pt Level 3 (46655) Diagnoses Fibromyalgia M79.7 Chronic pain of right knee M25.561; G89.29 Chronicity: chronic
[2023-05-07 11:06] VITALS: BP 108/66; PULSE 79; TEMP 36.1; O2SAT 97; BMI 29.8
== END 2023-05-07 12:06 | disposition home or self-care (01) ==
PROVIDERS: PCP Internal Medicine; Visit Provider Student in an Organized Health Care Education/Training Program
DX: M79.7 Fibromyalgia (principal); M25.561 Pain in right knee; G89.29 Other chronic pain
CPT/HCPCS: 99203

== ENCOUNTER → 2023-05-07 10:49 | Outpatient (BNVA) | payer OTHER, MEDICAID, SELFPAY | PROVIDERS: PCP Internal Medicine; Visit Provider Student in an Organized Health Care Education/Training Program ==

== ENCOUNTER 2023-07-14 14:16 | Outpatient (AMB) | payer OTHER, SELFPAY ==
--- NOTE | 2023-07-14 14:19 | MHC.PC.OV ---
Vital Signs 07/14/23 14:20 Height 5 ft 1 in Weight 161 lb BMI 30.4 BP 112/76 Blood Pressure Location Lt brachial Position Sitting Intake Visit Reasons: Annual Exam - see comments Intake Note: Patient here for an annual physical exam, follow up labs from ED Collar Padder Blindstitch Required: No Accompanied by: Self / Same As Patient Allergies sumatriptan [From IMITREX] Allergy (Intermediate, Verified 07/14/23 14:55) RASH Medication List - Last Reconciled 07/14/23 by Piedad Wilson MD acetaminophen ER 1,300 mg (2 x 650 mg) PO Q12H PRN 90 days amitriptyline 10 mg PO BEDTIME 30 days cholecalciferol (vitamin D3) 50 mcg PO DAILY 90 days duloxetine (Cymbalta) 20 mg PO DAILY 30 days fluticasone propionate 50 mcg/actuation (Allergy Relief (fluticasone)) 1 spray intranasal DAILY 30 days hydrocortisone 1% (Anti-Itch (hydrocortisone)) 1 appl topical TID PRN 30 days loratadine 10 mg PO DAILY 90 days meloxicam 15 mg PO DAILY PRN 30 days omeprazole 20 mg PO DAILY 90 days Tobacco use date assessed: 07/14/23 Dental Screening Dental Screen Date: 07/14/23 Did you have a dental visit in the last 12 months?: No Did you have a dental problem in the last 6 months where you did not have access to dental care?: No Was dental information given to patient?: Patient has dentist HPI HPI Comments History of Present Illness Details This is a 58-year-old female that comes for her physical exam last mammogram done October 2022 and was normal. Last Pap smear was 2018 and had HPV negative. Will be referred to OBGYN for Pap smear. Last colonoscopy was 2017 showing hyperplastic polyp. Has never a bone density. Denies any chest pain or shortness of breath. [facility] Medical History Postmenopausal Screening for cervical cancer Physical exam Right sided sciatica Dyslipidemia Polyarthralgia Allergic rhinitis GERD (gastroesophageal reflux disease) Pain Surgical History History of hemorrhoidectomy History of tubal ligation Family History Father Diabetes Heart disease Hypertension CVD (cardiovascular disease) Mother Heart disease Hypertension CVD (cardiovascular disease) Diabetes Family/Other FH: mental illness Mental health disorder Substance use disorder Brother In good health Sister Rheumatoid arthritis Son In good health Daughter In good health Social History Household Members: Spouse Housing: House Alcohol intake: never Patient Tobacco Use Status: Never used Tobacco e-Cigarette/Vaping Use: Never Used Second Hand Smoke Exposure: No service: No Current occupational status: unemployed 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 1. Little interest or pleasure in doing things: not at all 2. Feeling down, depressed, or hopeless: not at all 3. Trouble falling or staying asleep, or sleeping too much: not at all 4. Feeling tired or having little energy: not at all 5. Poor appetite or overeating: not at all 6. Feeling bad about yourself - or that you are a failure or have let yourself or your family down: not at all 7. Trouble concentrating on things, such as reading the newspaper or watching television: not at all 8. Moving or speaking so slowly that other people could have noticed. Or the opposite - being so fidgety or restless that you have been moving around a lot more than usual: not at all 9. Thoughts that you would be better off or of hurting yourself in some way: not at all Total score: 0 Depression Screening Interpretation: Negative Depression Screening Done: Yes 59580 - PHQ-9 Billing: Yes Source: Developed by Drs. Jimmy Pickard, Jeannette Lewis, Jamie Jade and colleagues, with an educational selene from [employer]. Thrive Questionnaire Date Thrive assessed: 07/14/23 I am a: Patient What is your living situation today?: I have a steady place to live Within the past 12 months, did the food you bought not last and you didn't have the money to get more?: Never true Within the past 12 months, did you worry whether your food would run out before you got money to buy more?: Never true Do you have trouble paying for medicines?: No Do you have trouble getting transportation to medical appointments?: No Do you have trouble paying your heating and electricity bill?: No Do you have trouble taking care of your child, family member or friend?: No Do you have trouble with day-to-day activities such as bathing, preparing meals, shopping, managing finances, etc.?: No Are you currently unemployed and looking for a job?: No Are you interested in more education?: No Please select the resources that you would like help with: None Currently or been in a relationship where the following occur: no concerns reported THRIVE Score: 0 AUDIT C Alcohol Use Questionnaire (AUDIT-C) 1. How often do you have a drink containing alcohol?: Never Total Score: 0 Score Reviewed/Action Taken: No ELISE-7 AMB Questionnaire ELISE-7 Date ELISE - 7 assessed: 07/14/23 Feeling nervous, anxious, or on edge: 0 = Not at all Not being able to stop or control worryin = Not at all Worrying too much about different things: 0 = Not at all Trouble relaxin = Not at all Being so restless that it is hard to sit still: 0 = Not at all Becoming easily annoyed or irritable: 0 = Not at all Feeling afraid as if something awful might happen: 0 = Not at all Total ELISE-7 score (0-4 normal; 5-9 mild; 10-14 moderate; 15-21 severe): 0 Source: Developed by Drs. Jimmy Pickard, Jeannette Lewis, Jamie Jade and colleagues, with an educational selene from [employer]. ELISE-7 Assessment Billing ELISE-7 Assessment Tool: ELISE-7 Assessment 28239 Review of Systems Const All systems reviewed & are unremarkable except as noted in HPI and below Eyes Reports no additional complaints, Denies change in vision and Denies other visual disturbances Card Denies chest pain at rest, Denies chest pain with activity, Denies edema, Denies irregular heart rhythm, Denies claudication, Denies dyspnea, Denies dyspnea on exertion, Denies orthopnea, Denies paroxysmal nocturnal dyspnea and Denies slow heart rate Resp Denies cough, Denies dyspnea and Denies dyspnea on exertion GI Denies abdominal pain, Denies change in bowel habits, Denies excessive flatus, Denies nausea and Denies vomiting Denies urinary incontinence, Denies urinary hesitancy and Denies urinary urgency Physical exam (Primary Care) Vital Signs: Last Vital Signs BP 112/76 07/14/23 14:20 BMI result Body Mass Index 30.4 Tobacco/Smoking Status: Tobacco use Status Tobacco use date assessed 07/14/23 07/14/23 14:26 Patient Tobacco Use Status Never used Tobacco 07/14/23 14:26 e-Cigarette/Vaping Use Never Used 07/14/23 14:26 PHQ-9: PHQ-9 Score PHQ-9: Total score 0 07/14/23 14:32 Depression Screening Interpretation: Negative Thrive Assessment: Date of Thrive Assessment Date Thrive assessed 07/14/23 07/14/23 14:32 Currently or been in a relationship where the following occur: no concerns reported Const Orientation/consciousness: patient oriented x3 HENMT Head: Yes normal to inspection, Yes normocephalic and Yes atraumatic Ears: external ears normal Eyes General: appearance normal, both eyes and all related structures Eyelids: Yes eyelids normal Conjunctivae: conjunctivae normal Neck Neck: Yes normal visual inspection and Yes supple Thyroid: solitary palpable nodule Resp Effort & Inspection: normal respiratory effort Auscultation: clear to auscultation bilaterally Cardio Jugular venous distension: no JVD Rate: regular rate Rhythm: regular rhythm Heart sounds: S1 normal heart sound present and S2 normal heart sound present GI Inspection: Yes normal to inspection Palpation (GI): Soft to palpation and nontender Auscultation: normal bowel sounds Skin General skin exam: no rashes or lesions noted Neuro General: patient oriented x3 and no focal motor deficits Extrem General: Yes full ROM Psych Appearance: grossly normal Assessment and Plan Assessment & Plan (1) Physical exam: Code(s): Z00.00 - Encounter for general adult medical examination without abnormal findings Plan: Repeat in a year. Orders: Orders Free T4 (Free Thyroxine) Today E04.1 - Nontoxic single thyroid nodule Thyroglobulin Antibodies Today E04.1 - Nontoxic single thyroid nodule Lipid Panel Today E78.5 - Hyperlipidemia, unspecified US thyroid Today E04.1 - Nontoxic single thyroid nodule Thyroid Stimulating Hormone Today E04.1 - Nontoxic single thyroid nodule Thyroid Peroxidase Antibodies Today E04.1 - Nontoxic single thyroid nodule Vitamin D 25-OH Total Today E55.9 - Vitamin D deficiency, unspecified XR DEXA axial skeleton Today N95.9 - Unspecified menopausal and perimenopausal disorder Comprehensive [place]. Panel Fast Today Z00.00 - Encounter for general adult medical examination without abnormal findings Referrals QUALITY ASSURANCE ENGINEER Referral Z12.4 - Encounter for screening for malignant neoplasm of cervix Coding Level of Care Code Est Pt Prev Care 40-64y(30634) Diagnoses Physical exam Z00.00 Additional Codes ELISE-7 Assessment Billing - ELISE-7 Assessment Tool: ELISE-7 Assessment 50555 ([id number]) Time Spent (min) 31
[2023-07-14 14:20] VITALS: BP 112/76; BMI 30.4
== END 2023-07-14 14:53 | disposition home or self-care (01) ==
PROVIDERS: Visit Provider Internal Medicine
DX: Z00.00 Encounter for general adult medical examination without abnormal findings (principal)
CPT/HCPCS: 99396

== ENCOUNTER 2023-07-22 08:51 | Outpatient (REF) | payer OTHER, MEDICAID, SELFPAY ==
--- NOTE | ~2023-07-22 | US_ITS ---
EXAMINATION: US THYROID CLINICAL INFORMATION: Nontoxic single thyroid nodule. COMPARISON: None available. TECHNIQUE: Linear transducer grayscale and color Doppler examination with attention to the region of the thyroid. FINDINGS: SIZE: Measurements of the thyroid lobes and nodules are given in sagittal, anteroposterior and transverse dimensions respectively. Right Thyroid Lobe: 4.4 x 1.1 x 1.3 cm, volume 3.3 mL. Parenchyma: The gland echotexture is homogeneous. Thyroid vascularity is normal. Left Thyroid Lobe: 4.7 x 1.0 x 1.1 cm, volume 2.7 mL. Parenchyma: The gland echotexture is homogeneous. Thyroid vascularity is normal. Isthmus: 0.2 cm in maximum AP dimension. Estimated total number of nodules greater than or equal to 1 cm: 0. Slate Splitter nodules are described as follows: 1. Location: Right inferior. Size: 0.3 x 0.3 x 0.4 cm, volume 0.02 mL. Nodule characteristics: Composition: Solid (2). Echogenicity: Hypoechoic (2). Shape: Not taller than wide (0). Margins: Ill-defined (0). Echogenic Foci: None (0). ACR TI-RADS total points: 4 ACR TI-RADS category: 4 2. Location: Right inferior. Size: 0.3 x 0.2 x 0.3 cm, volume 0.01 mL. Nodule characteristics: Composition: Solid (2). Echogenicity: Hypoechoic (2). Shape: Not taller than wide (0). Margins: Ill-defined (0). Echogenic Foci: None (0). ACR TI-RADS total points: 4 ACR TI-RADS category: 4 NODES: No lymphadenopathy is seen in the tissue surrounding the thyroid gland. US/US thyroid IMPRESSION: 1. Right thyroid 0.4 cm and 0.3 cm T-RADS for nodule. There is no specific indication for additional imaging at this time per ACR criteria provided below. 2. Borderline enlarged left cervical level 3 lymph node measures 1.2 x 0.4 x 0.6 cm, and is borderline atypical with subtle echogenic hilum. Correlation with clinical exam recommended to determine further management including possible additional follow up imaging. ACR TI-RADS RECOMMENDATION REFERENCE: Ultrasound-guided fine-needle aspiration, followup ultrasound, no further follow up. * TR1 (0 point) and TR2 (2 points): No FNA or follow up. * TR3 (3 points): FNA if more than or equal to 2.5 cm in maximum dimension, followup ultrasound in 1, 3 and 5 years if 1.5 to 2.4 cm in maximum dimension. * TR4 (4-6 points): FNA if more than or equal to 1.5 cm in maximum dimension, followup ultrasound in 1, 2, 3 and 5 years if 1 to 1.4 cm in maximum dimension. * TR5 (more than or equal to 7 points): FNA if more than or equal to 1 cm in maximum dimension, followup ultrasound every year for 5 years if 0.5 to 0.9 cm in maximum dimension. * TR3, TR4 or TR5 nodules that are below the size threshold for followup receive no follow up.
== END 2023-07-22 08:52 | disposition home or self-care (01) ==
LOC: HO.US 08:51
PROVIDERS: PCP Internal Medicine; Visit Provider Internal Medicine
DX: E04.1 Nontoxic single thyroid nodule (principal)
CPT/HCPCS: 76536

== ENCOUNTER 2023-07-31 08:49 | Outpatient (REF) | payer OTHER, MEDICAID, SELFPAY ==
--- NOTE | ~2023-07-31 | MM_ITS ---
EXAMINATION: BONE DENSITOMETRY CLINICAL INDICATION: Unspecified menopausal and perimenopausal disorder. COMPARISON: Baseline BD dated 07/17/2021. TECHNIQUE: Using a Partender DXA System (software version: 13.1) manufactured by [employer], dual-energy x-ray absorptiometry was performed of the lumbar spine and left hip. The images are of good technical quality. Summary results are attached. FINDINGS: LEFT FEMUR, NECK: Current: BMD 0.861 g/cm2, Z-score -0.4, T-score -1.3, osteopenia. Baseline: BMD 0.803 g/cm2. LEFT FEMUR, TOTAL: Current: BMD 0.892 g/cm2, Z-score -0.4, T-score -0.9, normal, 3.2% increase from baseline (<5% change is not significant). Baseline: BMD 0.864 g/cm2. AP SPINE L1-L4: Current: BMD 1.039 g/cm2, Z-score -0.6, T-score -1.2, osteopenia, 6.7% increase from baseline (<5% change is not significant). Baseline: BMD 0.974 g/cm2. IDENTIFIED RISK FACTORS: Early menopause, secondary osteoporosis. HISTORY OF FRACTURE: None listed. MEDICATIONS: Vitamin D. MM/XR DEXA axial skeleton IMPRESSION: 1. DIAGNOSIS: Osteopenia based on the lowest T-score value of -1.3 in the femoral neck applying World Health Organization criteria. 2. 10-YEAR FRACTURE RISK PREDICTION, FRAX: Major osteoporotic fracture (clinical spine, forearm, hip or shoulder) 3.4%. Hip fracture 0.2%. 3. Treatment Recommendations: NOF guidelines recommend consideration for treatment in postmenopausal women and men age 50 and older presenting with the following: -A hip or vertebral (clinical or morphometric) fracture. -T-score less than or equal to -2.5 at the femoral neck or spine after appropriate evaluation to exclude secondary causes. -Low bone mass at the hip or spine and a 10-year fracture probability by FRAX of greater than or equal to 3% for hip fracture or greater than or equal to 20% for major osteoporotic fracture based on the [place] adapted WHO algorithm. 4. Other Recommendations: All treatment decisions require clinical judgment and consideration of individual patient factors, including patient preferences, comorbidities, previous drug use, risk factors not captured in the FRAX model (e.g. frailty, falls, vitamin D deficiency, increased bone turnover, interval significant decline in bone density) and possible under or overestimation of fracture risk by FRAX. Additional medical evaluation for secondary cause of low bone mineral density may be appropriate. FUTURE SCAN RECOMMENDATION: People with diagnosed cases of osteoporosis or at high risk for fracture should have regular bone mineral density tests. For patients eligible for Medicare, routine testing is allowed once every 2 years. The testing frequency can be increased to one year for patients who have rapidly progressing disease, those who are receiving or discontinuing medical therapy to restore bone mass, or have additional risk factors.
== END 2023-07-31 08:50 | disposition home or self-care (01) ==
LOC: HO.MAMMO 08:49
PROVIDERS: PCP Internal Medicine; Visit Provider Internal Medicine
DX: Z13.820 Encounter for screening for osteoporosis (principal); Z78.0 Asymptomatic menopausal state
CPT/HCPCS: 77080

== ENCOUNTER 2023-09-04 15:46 | Outpatient (REF) | payer OTHER, MEDICAID, SELFPAY ==
--- NOTE | ~2023-09-04 | US_ITS ---
EXAMINATION: US SOFT TISSUE NECK CLINICAL INFORMATION: Localized enlarged lymph nodes. 3 mm left cervical lymphadenopathy by ultrasound thyroid. COMPARISON: Ultrasound thyroid 07/22/2023. TECHNIQUE: Linear transducer grayscale and color Doppler examination of the left neck level III. FINDINGS: Targeted ultrasound images were obtained by the golf stud riveter of the area of concern as indicated by the patient in the left neck at level 3 demonstrate a 1.8 x 0.4 x 0.3 cm abnormal lymph node, which previously measured 1.2 x 0.4 x 0.6 cm. 1.3 x 0.5 x 0.5 cm atypical node in the left neck at level 3 was not previously imaged. Radiologist was not in attendance. Images were later provided for interpretation. US/US soft tiss head and/or neck IMPRESSION: Abnormal lymph nodes in the left neck at level 3 are indeterminate. Correlation with clinical exam recommended to determine further management including possible additional imaging with CT scan and/or follow-up ultrasound.
== END 2023-09-04 15:47 | disposition home or self-care (01) ==
LOC: HO.US 15:46
PROVIDERS: PCP Internal Medicine; Visit Provider Internal Medicine
DX: R59.0 Localized enlarged lymph nodes (principal)
CPT/HCPCS: 76536

== ENCOUNTER 2023-09-08 12:56 | Outpatient (AMB) | payer OTHER, MEDICAID, SELFPAY ==
[2023-09-08 12:59] VITALS: BP 126/84; BMI 31.2
--- NOTE | 2023-09-08 12:59 | A.OFFVIS_ITS ---
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 No complaints. Last Pap/HPV was negative in 11/01 Last Mammogram was BI-RADS 1 in 11/05 Last Colonoscopy was 6 years ago, no records available, but according to the patient the recommendation was to repeat in 10 years [facility] Medical History Postmenopausal Screening for cervical cancer Physical exam Right sided sciatica Dyslipidemia Polyarthralgia Allergic rhinitis GERD (gastroesophageal reflux disease) Pain Surgical History History of hemorrhoidectomy History of tubal ligation Family History Father Diabetes Heart disease Hypertension CVD (cardiovascular disease) Mother Heart disease Hypertension CVD (cardiovascular disease) Diabetes Family/Other FH: mental illness Mental health disorder Substance use disorder Brother In good health Sister Rheumatoid arthritis Son In good health Daughter In good health Social History Household Members: Spouse Housing: House Alcohol intake: never Patient Tobacco Use Status: Never used Tobacco e-Cigarette/Vaping Use: Never Used Second Hand Smoke Exposure: No service: No Current occupational status: unemployed 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 Cognitive needs: No Hearing needs: No Vision needs: Yes Female Reproductive History Menstrual Date of last pap smear: 11/04/18 History of abnormal pap smear: Yes History of STI: No Date of Mammogram: 10/14/22 History of abnormal mammogram: No Review of Systems Const All systems reviewed & are unremarkable except as noted in HPI and below Card Reports as per HPI Resp Reports as per HPI GI Reports as per HPI and Reports no additional complaints Reports as per HPI Physical Exam Vital Signs: Last Vital Signs BP 126/84 09/08/23 12:59 BMI result Body Mass Index 31.2 Const General: cooperative, healthy appearing and comfortable Chest Chest palpation & inspection: normal inspection of the chest and normal palpation of entire chest wall Breast/axilla inspection: normal inspection of the breasts and normal inspection of the axillae Breast/axilla palpation: normal palpation of the breasts, normal palpation of the axillae and no axillary lymphadenopathy Resp Effort & Inspection: normal respiratory effort Auscultation: clear to auscultation bilaterally Percussion: percussion normal Cardio Palpation: normal PMI Rate: regular rate Rhythm: regular rhythm Heart sounds: no murmurs and no rubs Peripheral pulses: Peripheral pulses 2+ throughout GI Inspection: Yes normal to inspection Palpation (GI): Soft to palpation, nontender, no guarding, not rigid and No hepatosplenomegaly present Percussion: Yes normal to percussion Auscultation: normal bowel sounds Rectal Exam - Female: deferred General: Yes bladder normal to palpation External Female Exam: No lesion Speculum Exam - Vagina: normal appearance of the vagina, normal palpation, normal vaginal discharge and not erythematous Speculum Exam - Cervix: normal appearance of the cervix and normal palpation Bimanual exam- vagina & uterus: normal bimanual exam, normal palpation, uterine size normal, bladder normal to palpation, consistency normal and normal palpatio n Bimanual Exam- Adnexa, other: normal adnexae, no masses and no tenderness Assessment & Plan Assessment & Plan (1) Well woman exam: Code(s): Z01.419 - Encounter for gynecological examination (general) (routine) without abnormal findings Category: Medical Plan: Co testing done. Counseled the patient about the recommended dietary allowance of 1200 mg of Calcium & 600 IU of vitamin D. Mammogram ordered. The patient was referred to GI for screening colonoscopy . The patient was instructed to perform monthly self-breast exams and schedule annual exam in a year. All questions answered and the patient verbalized understanding. Orders: Orders MM tomosynthesis screening BI Today Z12.31 - Encounter for screening mammogram for malignant neoplasm of breast Referrals Gastroenterology Referral Z12.11 - Encounter for screening for malignant neoplasm of colon Coding Level of Care Code New Pt Prev Care 40-64y(96720) Diagnoses Well woman exam Z01.419
== END 2023-09-08 13:53 | disposition home or self-care (01) ==
PROVIDERS: PCP Internal Medicine; Visit Provider Obstetrics & Gynecology
DX: Z01.419 Encounter for gynecological examination (general) (routine) without abnormal findings (principal)
CPT/HCPCS: 99386

== ENCOUNTER 2023-09-08 12:56 | Outpatient (REF) | payer OTHER, MEDICAID, SELFPAY ==
[2023-10-07 07:47] LABS: HPV mRNA E6/E7 rflx Not Detected
== END 2023-09-08 12:57 | disposition home or self-care (01) ==
LOC: HO.LNP 12:56
PROVIDERS: PCP Internal Medicine; Visit Provider Obstetrics & Gynecology
DX: Z01.419 Encounter for gynecological examination (general) (routine) without abnormal findings (principal); Z11.51 Encounter for screening for human papillomavirus (HPV)
CPT/HCPCS: 87624; 87625; 88175